=== PATIENT | female | born 1945 | race Caucasian/White ===

== ENCOUNTER → 2016-05-30 | Outpatient (CLI) | payer OTHER ==
[~2016-05-30] MED LIST: CELE100C PO; CHOL200010 PO; DOCU-94 PO; DULO60CA44 PO; FOLI1POW10 PO; HYDR0.5T PO; HYDR25TA4 PO; LEUC5TAB PO; LORA0.5T12 PO; METF-383 PO; METH2.5T PO; MONT1TAB3 PO; OMEG10007 PO; OMEP20TA14 PO; POLY1SOL6 OPB; PRED1SUS3 OPL; RXC5 PO; SODI5SOL4 OPB
--- NOTE | 2016-05-30 12:52 | MAMMOGRAPHY REPORT ---
BILATERAL DIGITAL DIAGNOSTIC MAMMOGRAM WITH CAD AND TARGETED RIGHT ULTRASOUND: 05/30/2016 CLINICAL HISTORY: 6 Month Follow-up. TECHNIQUE: Current study was also evaluated with a Computer Aided Detection (CAD) system. Bilatera l CC and MLO views and spot magnification left CC and ML views were obtained. COMPARISON: Comparison is made to exams dated: 11/27/2015 mammogram, 11/20/2015 mammogram, 11/04/2013 m ammogram, 11/15/2014 mammogram, 11/03/2012 mammogram, and 11/03/2011 mammogram - [facility] C enter. BREAST COMPOSITION: The tissue of both breasts is heterogeneously dense, which may obscure small ma sses. FINDINGS: Spot magnification views of the left breast again demonstrate a small cluster of punctate benign-candace earing calcifications in the left upper outer quadrant posteriorly. The calcifications are stable c ompared to spot magnification views dating back to April 2015, and are therefore probably benign g iven the morphology and stability. An oval circumscribed 13 mm mass seen within the right superior posterior breast on the MLO view onl y is stable compared to the October 2015 exam, and in retrospect may have been present on the 2011 exam although was somewhat obscured by overlying fibroglandular tissue which makes it difficult to confi rm stability. The remainder of both breasts are stable compared to prior exams, without suspicious masses, calcifications, or areas of architectural distortion noted. A biopsy marker clip is again n oted in the right lateral breast. Scattered bilateral benign appearing calcifications are not signi ficantly changed. Targeted ultrasound was performed of the right breast in the region of the stable mammographic mass. In the right breast at 8:30, 7 cm from the nipple, there is an oval hypoechoic circumscribed paral lel mass which measures 1.3 x 0.5 x 0.6 cm. This corresponds with the stable mammographic mass and is probably benign and likely represents a fibroadenoma. IMPRESSION: ACR-BI-RADS CATEGORY 3: PROBABLY BENIGN, TARGETED ULTRASOUND ACR-BI-RADS CATEGORY 3: VT OBABLY BENIGN 1. The circumscribed 13 mm mass in the right breast is stable mammographically compared to the October 2015 exam and likely was present on the 2011 exam. A corresponding hypoechoic benign-appearing taras id mass is seen in the right breast at 8:30 on ultrasound. The mass is probably benign and likely r epresents a fibroadenoma. Recommend follow-up diagnostic mammograms and possible ultrasound of the right breast in 6 months to confirm longer stability. 2. Small cluster of punctate calcifications in the left upper outer quadrant is stable dating back to the April 2015 exam, and is probably benign given the morphology and long-term stability. Jonn mmend follow-up diagnostic mammograms of the left breast in 6 months to confirm longer stability. The patient has been verbally notified of the results. Approximately 10% of breast cancers are not detected with mammography. A negative mammographic repor t should not delay biopsy if a clinically suggestive mass is present. Lolly Blake M.D. ah/:05/30/2016 12:16:17 Oim Architect: Lalito TSE(Marii)(Betsey), [facility] letter sent: Follow Up Recommended 3 BI-RADS Code: ACR-BI-RADS Category 3: Probably Benign Ultrasound BI-RADS: ACR-BI-RADS Category 3: P robably Benign
== END | disposition home or self-care (01) ==
LOC: C.MAMM 10:24
PROVIDERS: ATTEND Obstetrics & Gynecology
DX: N63 Unspecified lump in breast (principal); R92.1 Mammographic calcification found on diagnostic imaging of breast

== ENCOUNTER → 2016-08-08 | Outpatient (CLI) | payer OTHER ==
[2016-08-08 17:43] LABS: BASO % 0.6 %; BASO ABS # 0.05 K/uL (0-0.2); COMPLETE YES; EOS % 0.8 %; HEMATOCRIT 40.6 % (37-47); IG% 0.4 %; LYMPH % 27.8 %; LYMPH ABS # 2.31 K/uL (1.2-3.4); MEAN CELL VOLUME 91.9 fL (80-100); MEAN CORPUSCULAR HEMOGLOBIN 29.9 pg (25-34); MEAN CORPUSCULAR HGB CONC 32.5 g/dl (32-36); MEAN PLATELET VOLUME 10.3 fL (7.4-10.4); MONO % 11.1 %; NEUT % 59.3 %; PLATELET COUNT 297 K/uL (130-400); RED BLOOD COUNT 4.42 M/uL (4.2-5.4); WHITE BLOOD COUNT 8.31 K/uL (4.8-10.8)
[2016-08-08 17:56] LABS: FERRITIN 40.1 ng/ml (8.0-388.0)
== END | disposition home or self-care (01) ==
LOC: C.LABPVFM 12:08
PROVIDERS: ATTEND Nurse Practitioner
DX: D50.9 Iron deficiency anemia, unspecified (principal)

== ENCOUNTER → 2016-09-12 | Outpatient (CLI) | payer OTHER ==
[2016-09-12 12:51] LABS: BASO % 0.6 %; BASO ABS # 0.03 K/uL (0-0.2); COMPLETE YES; EOS % 1.7 %; HEMATOCRIT 38.9 % (37-47); IG% 0.2 %; LYMPH % 32.9 %; LYMPH ABS # 1.75 K/uL (1.2-3.4); MEAN CELL VOLUME 94.2 fL (80-100); MEAN CORPUSCULAR HEMOGLOBIN 29.5 pg (25-34); MEAN CORPUSCULAR HGB CONC 31.4 g/dl (32-36); MONO % 8.5 %; NEUT % 56.1 %; PLATELET COUNT 315 K/uL (130-400); RED BLOOD COUNT 4.13 M/uL (4.2-5.4); WHITE BLOOD COUNT 5.32 K/uL (4.8-10.8)
[2016-09-12 13:16] LABS: ALB/GLOB RATIO 1.2 (0.9-2); ALKALINE PHOSPHATASE 86 U/L (45-117); ALT/SGPT 41 U/L (12-78); AST/SGOT 29 U/L (15-37); BLOOD UREA NITROGEN 13 mg/dl (7-18); BUN/CREATININE RATIO 14.7 (10-20); CALCIUM 8.7 mg/dl (8.5-10.1); CARBON DIOXIDE 27 mmol/L (21-32); CHLORIDE 107 mmol/L (98-107); CREATININE 0.91 mg/dl (0.60-1.20); FERRITIN 27.7 ng/ml (8.0-388.0); GLUCOSE 133 mg/dl (70-99); POTASSIUM 4.1 mmol/L (3.5-5.1); SODIUM 143 mmol/L (136-145)
[2016-09-12 13:20] LABS: TOTAL IRON BINDING CAPACITY 407 mcg/dl (250-450)
[2016-09-12 13:42] LABS: ESTIMATED AVERAGE GLUCOSE 143 mg/dl; HA1C FLAG Normal (Normal)
[2016-09-12 13:43] LABS: CHOLESTEROL/HDL RATIO 4.2
== END | disposition home or self-care (01) ==
LOC: C.LABPVFM 09:37
PROVIDERS: ATTEND Family Medicine
DX: Z00.00 Encounter for general adult medical examination without abnormal findings (principal); D50.9 Iron deficiency anemia, unspecified; E11.9 Type 2 diabetes mellitus without complications; E78.5 Hyperlipidemia, unspecified; F41.9 Anxiety disorder, unspecified

== ENCOUNTER → 2016-09-16 | Outpatient (CLI) | payer OTHER ==
--- NOTE | 2016-09-16 15:39 | DIAGNOSTIC IMAGING REPORT ---
PELVIS/BILATERAL HIP 2 VIEWS CLINICAL HISTORY: Recent fall. Bilateral hip pain. COMPARISON STUDY: Pelvis radiograph May 27, 2011. FINDINGS: Lumbar spine fusion hardware is partially imaged. 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 There is no periprosthetic fracture. There is no acute fracture within the pelvis or the hips. The sacroiliac joints and symphysis pubis are intact. There are a few pelvic surgical clips. IMPRESSION: 1. No acute fracture within the pelvis or hips. 2. Anatomic alignment of total left hip arthroplasty with no periprosthetic fracture. Electronically signed by: Riley Chaparro M.D. 09/16/2016 3:38 PM Dictated Date/Time: 09/16/2016 3:36 PM
== END | disposition home or self-care (01) ==
LOC: C.RADPV 14:11
PROVIDERS: ATTEND Nurse Practitioner
DX: M25.552 Pain in left hip (principal); M25.551 Pain in right hip; R10.2 Pelvic and perineal pain

== ENCOUNTER → 2016-10-14 | Outpatient (CLI) | payer OTHER ==
[2016-10-14 17:38] LABS: BASO % 0.5 %; BASO ABS # 0.04 K/uL (0-0.2); COMPLETE YES; EOS % 2.4 %; HEMATOCRIT 38.1 % (37-47); IG% 0.4 %; LYMPH % 29.1 %; LYMPH ABS # 2.34 K/uL (1.2-3.4); MEAN CELL VOLUME 94.5 fL (80-100); MEAN CORPUSCULAR HEMOGLOBIN 30.3 pg (25-34); MEAN PLATELET VOLUME 9.9 fL (7.4-10.4); MONO % 11.2 %; NEUT % 56.4 %; PLATELET COUNT 315 K/uL (130-400); RED BLOOD COUNT 4.03 M/uL (4.2-5.4); WHITE BLOOD COUNT 8.03 K/uL (4.8-10.8)
[2016-10-14 18:27] LABS: ALB/GLOB RATIO 1.1 (0.9-2); ALKALINE PHOSPHATASE 89 U/L (45-117); ALT/SGPT 27 U/L (12-78); AST/SGOT 19 U/L (15-37); BLOOD UREA NITROGEN 12 mg/dl (7-18); BUN/CREATININE RATIO 13.1 (10-20); CALCIUM 9.4 mg/dl (8.5-10.1); CARBON DIOXIDE 26 mmol/L (21-32); CHLORIDE 105 mmol/L (98-107); CREATININE 0.93 mg/dl (0.60-1.20); FERRITIN 22.9 ng/ml (8.0-388.0); GLUCOSE 102 mg/dl (70-99); POTASSIUM 3.7 mmol/L (3.5-5.1); SODIUM 141 mmol/L (136-145)
[2016-10-14 18:31] LABS: TOTAL IRON BINDING CAPACITY 434 mcg/dl (250-450)
== END | disposition home or self-care (01) ==
LOC: C.LABPVFM 14:06
PROVIDERS: ATTEND Nurse Practitioner Family
DX: D50.9 Iron deficiency anemia, unspecified (principal)

== ENCOUNTER → 2016-11-04 | Outpatient (CLI) | payer OTHER ==
[2016-11-04 18:31] LABS: LYME DISEASE AB IGG NEG (NEG); LYME DISEASE AB IGM NEG (NEG)
== END | disposition home or self-care (01) ==
LOC: C.LABPVFM 11:31
PROVIDERS: ATTEND Nurse Practitioner
DX: R41.3 Other amnesia (principal)

== ENCOUNTER → 2016-11-21 | Outpatient (CLI) | payer OTHER ==
--- NOTE | 2016-11-26 09:03 | CODING QUERY MEDICAL NECESSITY ---
SUPPORTING DIAGNOSIS NEEDED Abel MCDONALD, A supporting diagnosis is required for the test/procedure performed on this patient in order for us to be reimbursed by the patient's insurance. Please provide a supporting diagnosis for the following test/procedure listed below next to the test name along with your signature. *If there is no additional diagnosis for this patient that would support the following test/procedure please document that below next to the test/procedure. Test(s)/Procedure(s) that require a supporting diagnosis: * ([id number]) VITAMIN D ASSAY DIAGNOSIS: DATE OF SERVICE: 11/21/16 Provider Signature: Date: Thank you [facility] Information Management Once completed, please kindly fax back to [phone] For questions please call [phone]
== END | disposition home or self-care (01) ==
LOC: C.LABPVFM 11:49
PROVIDERS: ATTEND Nurse Practitioner
DX: R41.0 Disorientation, unspecified (principal); R45.4 Irritability and anger; R41.3 Other amnesia; M79.1 Myalgia

== ENCOUNTER → 2016-11-28 | Outpatient (CLI) | payer OTHER ==
--- NOTE | 2016-11-28 13:22 | MAMMOGRAPHY REPORT ---
BILATERAL DIGITAL DIAGNOSTIC MAMMOGRAM TOMOSYNTHESIS WITH CAD AND TARGETED RIGHT ULTRASOUND: 11/28/2016 CLINICAL HISTORY: 6 Month Follow-up. TECHNIQUE: Breast tomosynthesis in addition to standard 2D mammography was performed. Current study was also evaluated with a Computer Aided Detection (CAD) system. Bilateral CC and MLO 2-D and tomosy nthesis images and spot magnification left CC and ML views were obtained. COMPARISON: Comparison is made to exams dated: 05/30/2016 ultrasound, 05/30/2016 mammogram, 11/20/2015 ma mmogram, 11/20/2015 ultrasound, 05/21/2015 mammogram, and 11/06/2014 mammogram - [facility] C enter. BREAST COMPOSITION: The tissue of both breasts is heterogeneously dense, which may obscure small mas ses. FINDINGS: Again noted is an oval circumscribed 15 mm mass within the right superior posterior breast on the MLO view. The mass is stable mammographically dating back to the 11/20/2015 exam, and may hav e been present on the 2011 exam. Spot magnification views of the left breast again demonstrate a sma ll cluster of very faint punctate calcifications in the left upper outer quadrant posteriorly. The c alcifications are stable dating back to at least the April 2015 exam, and are felt to be benign giv en the morphology and stability. The remainder of both breasts are stable compared to prior exams, without suspicious masses, calcific ations, or areas of architectural distortion noted. Other scattered bilateral benign-appearing calci fications are not significantly changed. A biopsy marker clip is again noted in the right lateral br east. Targeted ultrasound was performed of the area of the previously seen mass. In the right breast at 9: 00, 8 centimeters from the nipple, there is an oval circumscribed hypoechoic mass which measures 11 x 5 x 9 mm. This is stable in size and appearance compared to the 05/30/2016 exam when accounting for d ifferences in measurement technique. This likely corresponds with the stable mammographic mass and i s probably benign and likely represents a fibroadenoma. IMPRESSION: ACR-BI-RADS CATEGORY 3: PROBABLY BENIGN, TARGETED ULTRASOUND ACR-BI-RADS CATEGORY 3: PRO BABLY BENIGN 1. Circumscribed benign-appearing 15 mm mass in the right superior posterior breast is stable mammog raphically dating back to the October 2015 exam, with a corresponding hypoechoic mass seen in the right breast at 9:00 on ultrasound. The mass is probably benign given 1 year of stability and likely repre sents a fibroadenoma. Recommend follow-up diagnostic tomosynthesis mammograms and possible ultrasoun d of the right breast in one year to confirm 2 years of stability of the mass. Routine mammography o f the left breast will be due at that time. 2. Grouped benign-appearing punctate calcifications in the left upper outer quadrant are stable dati ng back to April 2015, and are considered benign given the morphology and long-term stability. The patient has been verbally notified of the results. Approximately 10% of breast cancers are not detected with mammography. A negative mammographic report should not delay biopsy if a clinically suggestive mass is present. Lolly Blake M.D. ah/:11/28/2016 11:54:54 Attending Technologist: Kimberly Martinez, [facility] Farm Equipment Mechanic: Nathalie Rocha RT(R)(M), [facility] letter sent: Follow Up Recommended 3 BI-RADS Code: ACR-BI-RADS Category 3: Probably Benign Ultrasound BI-RADS: ACR-BI-RADS Category 3: Pr obably Benign
== END | disposition home or self-care (01) ==
LOC: C.MAMM 10:29
PROVIDERS: ATTEND Obstetrics & Gynecology
DX: Z09 Encounter for follow-up examination after completed treatment for conditions other than malignant neoplasm (principal); N63 Unspecified lump in breast; R92.1 Mammographic calcification found on diagnostic imaging of breast

== ENCOUNTER → 2017-01-16 | Outpatient (CLI) | payer OTHER ==
[2017-01-16 17:55] LABS: ALT/SGPT 45 U/L (12-78); BLOOD UREA NITROGEN 18 mg/dl (7-18); BUN/CREATININE RATIO 17.8 (10-20); CARBON DIOXIDE 27 mmol/L (21-32); CHLORIDE 99 mmol/L (98-107); GLUCOSE 129 mg/dl (70-99); POTASSIUM 3.6 mmol/L (3.5-5.1); SODIUM 138 mmol/L (136-145)
[2017-01-16 17:58] LABS: ALB/GLOB RATIO 1.2 (0.9-2); ALKALINE PHOSPHATASE 82 U/L (45-117); AST/SGOT 34 U/L (15-37); BASO % 0.3 %; BASO ABS # 0.02 K/uL (0-0.2); COMPLETE YES; EOS % 2.2 %; FERRITIN 36.8 ng/ml (8.0-388.0); HEMATOCRIT 41.6 % (37-47); IG% 0.4 %; LYMPH % 36.8 %; MEAN CELL VOLUME 93.1 fL (80-100); MEAN CORPUSCULAR HGB CONC 32.2 g/dl (32-36); MONO % 7.5 %; NEUT % 52.8 %; PLATELET COUNT 299 K/uL (130-400); RED BLOOD COUNT 4.47 M/uL (4.2-5.4); TOTAL IRON BINDING CAPACITY 418 mcg/dl (250-450); WHITE BLOOD COUNT 7.34 K/uL (4.8-10.8)
== END | disposition home or self-care (01) ==
LOC: C.LABPVFM 13:43
PROVIDERS: ATTEND Nurse Practitioner Family
DX: D50.9 Iron deficiency anemia, unspecified (principal)

== ENCOUNTER → 2017-04-07 | Outpatient (CLI) | payer OTHER ==
[2017-04-07 12:58] LABS: ESTIMATED AVERAGE GLUCOSE 160 mg/dl; HA1C FLAG Normal (Normal)
== END | disposition home or self-care (01) ==
LOC: C.LABPVFM 09:32
PROVIDERS: ATTEND Nurse Practitioner
DX: E78.5 Hyperlipidemia, unspecified (principal); E11.9 Type 2 diabetes mellitus without complications

== ENCOUNTER → 2017-05-28 | Outpatient (CLI) | payer OTHER ==
[2017-05-28 17:41] LABS: BLOOD UREA NITROGEN 16 mg/dl (7-18); CREATININE 1.13 mg/dl (0.60-1.20)
== END | disposition home or self-care (01) ==
LOC: C.LABPVFM 14:20
PROVIDERS: ATTEND Physician Assistant Medical
DX: M54.5 Low back pain (principal)

== ENCOUNTER → 2017-07-21 | Outpatient (CLI) | payer OTHER ==
[2017-07-21 17:25] LABS: BASO % 0.7 %; BASO ABS # 0.05 K/uL (0-0.2); EOS % 3.5 %; EOS ABS # 0.26 K/uL (0-0.5); HEMATOCRIT 39.7 % (37-47); HEMOGLOBIN 13.4 g/dL (12.0-16.0); IG# 0.02 K/uL (0.00-0.02); LYMPH % 34.2 %; LYMPH ABS # 2.56 K/uL (1.2-3.4); MEAN CELL VOLUME 96.8 fL (80-100); MEAN CORPUSCULAR HEMOGLOBIN 32.7 pg (25-34); MEAN CORPUSCULAR HGB CONC 33.8 g/dl (32-36); MEAN PLATELET VOLUME 10.4 fL (7.4-10.4); MONO % 13.1 %; MONO ABS # 0.98 K/uL (0.11-0.59); NEUT % 48.2 %; NEUT ABS # 3.62 K/uL (1.4-6.5); PLATELET COUNT 303 K/uL (130-400); RED CELL DISTRIBUTION WIDTH SD 55.3 fL (36.4-46.3); WHITE BLOOD COUNT 7.49 K/uL (4.8-10.8)
[2017-07-21 17:45] LABS: ALBUMIN 3.7 gm/dl (3.4-5.0); ALT/SGPT 50 U/L (12-78); AST/SGOT 41 U/L (15-37); BLOOD UREA NITROGEN 17 mg/dl (7-18); CALCIUM 9.6 mg/dl (8.5-10.1); CARBON DIOXIDE 27 mmol/L (21-32); CREATININE 1.22 mg/dl (0.60-1.20); GLUCOSE 223 mg/dl (70-99); POTASSIUM 3.2 mmol/L (3.5-5.1); SODIUM 137 mmol/L (136-145)
[2017-07-21 17:49] LABS: ALKALINE PHOSPHATASE 83 U/L (45-117); TOTAL PROTEIN 7.2 gm/dl (6.4-8.2); TRANSFERRIN 323 mg/dl (200-360)
== END | disposition home or self-care (01) ==
LOC: C.LABPVFM 14:03
PROVIDERS: ATTEND Nurse Practitioner Family
DX: D50.9 Iron deficiency anemia, unspecified (principal)

== ENCOUNTER → 2017-07-24 | Outpatient (CLI) | payer OTHER ==
[2017-07-25 06:59] LABS: HEMOGLOBIN A1C 7.4 % (4.5-5.6)
== END | disposition home or self-care (01) ==
LOC: C.LABPVFM 13:25
PROVIDERS: ATTEND Family Medicine
DX: E11.9 Type 2 diabetes mellitus without complications (principal); R68.2 Dry mouth, unspecified

== ENCOUNTER → 2017-12-07 | Outpatient (CLI) | payer OTHER ==
--- NOTE | 2017-12-10 08:21 | MAMMOGRAPHY REPORT ---
BILATERAL DIGITAL DIAGNOSTIC MAMMOGRAM TOMOSYNTHESIS WITH CAD: 12/07/2017 CLINICAL HISTORY: 72-year-old woman presents at time of annual screening and also close follow-up george luation of a benign-appearing 18 x 8 mm mass in the far posterior right breast along the posterior ni pple line on the MLO view. Patient has a history of prior benign ultrasound-guided core biopsy in the right breast at 9:00 which yielded fibrocystic change. TECHNIQUE: Bilateral CC and MLO 2D and tomosynthesis images were obtained. Current study was also ev aluated with a Computer Aided Detection (CAD) system. COMPARISON: Comparison is made to exams dated: 11/28/2016 mammogram, 05/30/2016 mammogram, 11/27/2015 mamm ogram, 11/20/2015 mammogram, 05/21/2015 mammogram, and 11/15/2014 mammogram - [facility]. BREAST COMPOSITION: The tissue of both breasts is heterogeneously dense, which may obscure small mass es. FINDINGS: There is a stable ribbon-shaped biopsy marker clip in the 9:00 middle to anterior right otoniel ast. A stable circumscribed 8 mm mass in the upper outer right breast appears similar dating back to at least 2008, most likely an intramammary lymph node. The previously observed 18 x 8 mm oval mass in the far posterior right breast along the posterior nipple line on the MLO view is no longer seen, confirming benignity. There are scattered bilateral benign rim calcifications. A stable circumscrib ed subcentimeter mass in the lateral left breast is stable dating back to at least 2011, and stable s mall faint grouped punctate calcifications in the left upper outer posterior breast. No new suspiciou s mass, architectural distortion or cluster of microcalcifications is seen. IMPRESSION: ACR BI-RADS CATEGORY 2: BENIGN The benign-appearing oval circumscribed 18 mm mass in the posterior right breast is no longer seen, c onfirming benignity. There is no mammographic evidence of malignancy bilaterally. A 1 year screening mammogram is recommended.(12/08/2018) The patient has been verbally notified of the results. Some breast cancers are not detected with mammography. A negative mammographic report should not lizeth y biopsy if a clinically suggestive mass is present. Marya Baires M.D. ay/:12/07/2017 12:17:15 Professor Of Biochemistry: Kimberly Esteban RT(R)(M), [facility] letter sent: Normal 1/2 BI-RADS Code: ACR BI-RADS Category 2: Benign
== END | disposition home or self-care (01) ==
LOC: C.MAMM 11:27
PROVIDERS: ATTEND Family Medicine
DX: Z12.31 Encounter for screening mammogram for malignant neoplasm of breast (principal)

== ENCOUNTER 2023-03-23 12:12 | Inpatient (IN) ==
[2023-03-23] MEDS ORDERED: SODIUM CHLORIDE 0.9% 500 ML IV STA (12:26)
[2023-03-23 13:39] LABS: Albumin Globulin Ratio 1.4 (0.9-2); Albumin Level 3.8 gm/dl (3.4-5.0); BUN Creatinine Ratio 11.8 (10-20); Bilirubin,Total 0.3 mg/dl (0.2-1.0); Calcium 8.6 mg/dl (8.6-10.3); Creatinine Clr Calc Pharmacy 11.8 ml/min; Est GFR (Non-African American) 9.5 ml/min; Globulin 2.7 gm/dl (2.5-4.0); Potassium 4.8 mmol/L (3.5-5.1); Total Protein 6.5 gm/dl (6.0-8.3)
[2023-03-23 13:42] LABS: Basophils # (auto) 0.06 K/uL (0.00-0.20); Basophils % (auto) 0.9 %; Eosinophils # (auto) 0.21 K/uL (0.00-0.50); Eosinophils % (auto) 3.1 %; Hematocrit (blood only) 33.3 % (37.0-47.0); Hemoglobin 10.3 g/dl (12.0-16.0); Immature Granulocytes # (auto) 0.04 K/uL (0.01-0.20); Immature Granulocytes % (auto) 0.6 %; Lymphocytes # (auto) 1.35 K/uL (1.20-3.40); Lymphocytes % (auto) 19.7 %; Mean Corpuscular Hemoglobin 25.8 pg (25.0-34.0); Mean Corpuscular Hgb Conc 30.9 g/dL (32.0-36.0); Mean Corpuscular Volume 83.5 fL (80.0-100.0); Mean Platelet Volume 11.1 fL (9.4-12.4); Monocytes # (auto) 0.81 K/uL (0.11-0.59); Monocytes % (auto) 11.8 %; Neutrophils % (auto) 63.9 %; Platelet Count 233 K/uL (130-400); RDW Coefficient of Variation 21.6 % (11.5-14.5); RDW Standard Deviation 65.5 fL (36.4-46.3); Red Blood Count 3.99 M/uL (4.20-5.40); White Blood Count 6.87 K/ul (4.8-10.8)
[2023-03-23 14:10] LABS: Anisocytosis Present; Polychromasia 1+
--- NOTE | 2023-03-23 14:40 | CT Scan Report ---
CT OF THE ABDOMEN AND PELVIS WITHOUT CONTRAST CLINICAL HISTORY: Left flank pain. COMPARISON STUDY: CT of the abdomen and pelvis December 17, 2022. TECHNIQUE: Axial images of the abdomen and pelvis were obtained without IV contrast. Images were revi ewed in the axial, sagittal, and coronal planes. Automated exposure control was utilized for the jalil dy. A dose lowering technique was utilized adhering to the principles of ALARA. FINDINGS: There is a trace right pleural effusion. A 5 mm mid left ureteral calculus at the L5-S1 lev el results in moderate left hydronephrosis. Multiple left renal calculi measure up to 6 mm. There are no right ureteral calculi. There is no right hydronephrosis. A punctate right renal calculus is pres ent a 1.1 cm left renal lesion on image 147 of 393 measures above water attenuation. This is similar to CT of December 17, 2022. This remains indeterminate. Spleen, adrenal glands and pancreas are unremar kable on unenhanced exam. No abdominal or pelvic lymphadenopathy is present. Left hip are opacities i ncidentally noted. DEPARTMENT MGR shunt is partially imaged. Visualized portions are intact. IMPRESSION: 1. 5 mm mid left ureteral calculus results in moderate left hydronephrosis. 2. Multiple left renal calculi. Punctate right renal calculus. No right hydronephrosis. No right uret eral calculi. 3. Trace right pleural effusion. ACT 112: Negative or not required by law. Electronically signed by: Riley Chaparro M.D. 03/23/2023 2:39 PM
--- NOTE | 2023-03-23 14:44 | Emergency Department Note ---
History of Present Illness General Chief Complaint: Flank Pain Stated Complaint: FLANK PAIN Time Seen by Provider: 03/23/23 13:00 History of Present Illness Provider Complaint: flank pain Onset (ago): 6 day(s) Pain Consistency: intermittent Location: L flank Radiation: LLQ Severity: mild Maximum Pain Intensity: 3 Current Pain Intensity: 3 Quality: + stabbing and + sharp Relieved By: + nothing Exacerbated By: + nothing Context: no foreign travel, no possible food poisoning, no sick contacts, no recent antibiotic use, no recent surgery/procedure or no recent injury Associated Symptoms: + nausea and + dysuria; no vomiting, no diarrhea, no fever, no chills, no constipation, no hematemesis, no hematochezia, no melena, no hematuria, no headache, no chest pain and no breathing difficulty Home Medications Medication Instructions Recorded Confirmed Type aspirin 81 mg tablet,delayed 81 mg PO QAM 07/22/18 03/23/23 History release cyanocobalamin (vitamin B-12) 1,000 mcg PO QAM 07/22/18 03/23/23 History 1,000 mcg tablet (Vitamin B-12) blood sugar diagnostic (OneTouch #10 ea 09/29/18 02/05/23 Rx Ultra Blue Test Strip) lancets 33 gauge (OneTouch Delica #100 ea 09/29/18 02/05/23 Rx Lancets) simethicone 180 mg capsule (Gas-X 180 mg PO DAILY PRN abdominal 09/29/18 03/23/23 Rx Ultra-Strength) distention #30 caps cholecalciferol (vitamin D3) 50 4,000 units PO DAILY #30 caps 02/17/19 03/23/23 Rx mcg (2,000 unit) capsule (Vitamin D3) sodium chloride 2 % eye drops 1 drp OPL HS 08/24/20 03/23/23 History (Reji 128) acetaminophen 325 mg capsule 325 mg PO QID PRN Pain 11/20/20 03/23/23 History ascorbic acid (vitamin C) 100 mg 100 mg PO DAILY 11/20/20 03/23/23 History tablet docusate sodium 100 mg capsule 100 mg PO DAILY PRN Constipation 11/20/20 03/23/23 History (Colace) lidocaine 4 % topical patch 1 patch topical DAILY PRN Pain 11/20/20 03/23/23 History (Aspercreme (lidocaine)) blood-glucose meter (OneTouch #1 ea 04/12/21 02/05/23 Rx Ultra2 Meter) Saccharomyces boulardii 250 mg 10,000 mmu cells PO DAILY 12/11/21 03/23/23 History capsule (Daily Probiotic (S. boulardii)) fish,bora,flax oils-om3,6,9no1 2 gummy PO DAILY 01/08/22 03/23/23 History [Perham 3-6-9 Complex] prednisolone acetate 1 % eye 1 drp ophthalmic (eye) BID 01/08/22 03/23/23 History drops,suspension ipratropium bromide 21 mcg (0.03 2 spray intranasal BID #90 mL 04/01/22 03/23/23 Rx %) nasal spray thiamine HCl (vitamin B1) 50 mg 25 mg PO DAILY 09/19/22 03/23/23 History tablet donepezil 5 mg tablet 5 mg PO DAILY #90 tabs 10/13/22 03/23/23 Rx lorazepam 1 mg tablet 1 mg PO BID PRN anxiety #60 tabs 10/16/22 03/23/23 Rx spironolactone 25 mg tablet See Rx Instructions .Route 11/13/22 03/23/23 Rx .COMPLEX #90 tabs sertraline 50 mg tablet 25 mg PO BID 12/05/22 03/23/23 History losartan 100 mg tablet 100 mg PO DAILY #90 tabs 12/31/22 03/23/23 Rx insulin glargine 100 unit/mL (3 55 unit (0.55 mL) subcut PM #55 mL 01/12/23 03/23/23 Rx mL) subcutaneous pen (Basaglar AnaikPen U-100 Insulin) levothyroxine 50 mcg tablet See Rx Instructions .Route 01/12/23 03/23/23 Rx .COMPLEX #90 tabs metformin 500 mg tablet,extended 750 mg PO BID 01/12/23 03/23/23 History release 24hr pantoprazole 40 mg tablet,delayed See Rx Instructions .Route 01/26/23 03/23/23 Rx release .COMPLEX #90 tabs ferrous sulfate 325 mg (65 mg 325 mg PO DAILY #90 tabs 01/28/23 03/23/23 Rx iron) tablet pregabalin 100 mg capsule 100 mg PO BID 90 days #180 caps 03/02/23 03/23/23 Rx duloxetine 60 mg capsule,delayed 60 mg PO DAILY #90 caps 03/11/23 03/23/23 Rx release sprinkle Allergies Allergy/AdvReac Type Severity Reaction Status Date / Time cetirizine Allergy Intermediate RASH AND Verified 02/05/23 16:18 ITCH fexofenadine Allergy Intermediate ALLLEGRA Verified 02/05/23 16:18 AND ZYRTEC RASH AND ITCH loratadine Allergy Intermediate RASH Verified 02/05/23 16:18 Penicillins Allergy Intermediate RASH Verified 02/05/23 16:18 glimepiride AdvReac Intermediate high blood Verified 02/05/23 16:18 sugars pioglitazone AdvReac Intermediate Palpitation Verified 02/05/23 16:18 s simvastatin AdvReac Intermediate MYALGIA Verified 02/05/23 16:18 doxycycline AdvReac Mild Gastrointestinal Verified 02/05/23 16:18 Upset gabapentin AdvReac Mild Anxiety Verified 02/05/23 16:18 lisinopril AdvReac Mild dehydration Verified 02/05/23 16:18 Past Med/Surg History Medical History Sensorineural hearing loss (SNHL) of both ears COVID-19 vaccine series completed Lacunar infarction years ago- follows with Dr. Dover Hyperparathyroidism Essential hypertension Esophageal dysmotility Diabetic peripheral neuropathy CKD (chronic kidney disease) Polymyalgia rheumatica Fibromyalgia Diabetes mellitus, type 2 Temporomandibular joint disorder Depression Peripheral neuropathy Fluid retention hands- on HCTZ Sleep apnea 1L O2 HS Iron deficiency anemia Surgical History History of esophagogastroduodenoscopy (EGD) H/O oophorectomy H/O: hysterectomy History of arthroscopy RT/LEFT KNEE History of repair of rotator cuff RT History of total hip arthroplasty LEFT History of total knee replacement RT/LEFT Fusion of spine LUMBAR (X 2 SURGERIES) History of colonoscopy History of tooth extraction History of endoscopic sinus surgery History of nasal septoplasty History of cataract surgery RT/LEFT History of tonsillectomy H/O eye surgery PARTIAL LEFT RETINA REPLACEMENT Family History Sister Breast cancer Family hx colonic polyps Hypertension Skin cancer Metastatic malignant neoplasm to breast Father Myocardial infarction Heart disease Sister Family hx colonic polyps Mother Skin cancer Lung cancer smoker Brother Lung cancer smoker Bladder cancer Heart disease Family/Other Adverse effect of anesthesia Other No family history of adverse response to anesthesia No family history of bleeding disorder Denies family history of Ovarian cancer Prostate cancer Colorectal cancer Social History Smoking Status: Never smoker Tobacco Type: Cigarettes Age Started Using Tobacco: 23; Age Quit Using Tobacco: 31; packs per day: 1; Second Hand Exposure: Yes (parents smoked/ smoked); Do You Dip or Chew Tobacco: No; Hx Alcohol Use: Yes Alcohol type: beer and wine Alcohol Intake Frequency: 2-4 x/Month Hx Substance Use: No Preferred Language: [place] Communication Ability: Effective Visual Impairment: Limited Hearing Ability: Normal Healthcare Interpreter Required: No Beliefs That Will Affect Care: None marital status: Current Living Situation: Spouse current occupational status: retired current occupation: used to work running [employer] How many Children do You have: 1 Feels Safe at Home: Yes Childhood Exposure to Second-Hand Smoke: Yes Diet: regular caffeine: Yes during the past year weight has: remained stable Dental Care, Regularly: Yes Physical Activity Frequency: Does not Exercise Seatbelt Use: always Sunscreen Use: Yes (sometimes ) Do you think of yourself as: straight/heterosexual Gender Identity: Female Assistive Devices: Glasses and Oxygen - at Night Physical Exam 2 Vital Signs: Vital Signs - 24 hr 03/23/23 12:22 03/23/23 14:54 03/23/23 16:59 Temperature 36.7 C Temperature Source Temporal Artery Sc an Pulse Rate 75 74 Pulse Rate [Apical ] 76 Pulse Rhythm [Apic al] Pulse Strength [Ap ical] Respiratory Rate 18 16 16 Respiratory Effort / Characteristics Non-Labored Sponta neous Respiratory Depth Normal Respiratory Patter n Regular Blood Pressure 147/67 H 149/80 H Blood Pressure [Le ft Arm] 191/89 H Blood Pressure [Ri ght Arm] Blood Pressure Roseanne n 93 Blood Pressure Roseanne n [Left Arm] 123 Blood Pressure Roseanne n [Right Arm] Blood Pressure Pos ition Sitting Blood Pressure Pos ition [Left Arm] Pulse Oximetry 100 94 95 Oxygen Delivery Me thod Room Air Room Air Room Air Oxygen Flow Rate Sepsis Recent Feve r Within 48 Hours No Sepsis New/Unexpla ined Change in Men mark anthony Status N/A Sepsis Action Take n by Nursing No Action Required 03/23/23 17:22 03/23/23 18:11 03/23/23 18:21 Temperature 36.9 C 36.3 C L Temperature Source Oral Temporal Artery Sc an Temporal Artery Sc an Pulse Rate Pulse Rate [Apical ] 70 72 70 Pulse Rhythm [Apic al] Regular Regular Pulse Strength [Ap ical] Normal Normal Respiratory Rate 19 14 20 Respiratory Effort / Characteristics Non-Labored Sponta neous Non-Labored Sponta neous Non-Labored Sponta neous Respiratory Depth Normal Normal Normal Respiratory Patter n Regular Regular Regular Blood Pressure Blood Pressure [Le ft Arm] 139/65 Blood Pressure [Ri ght Arm] 129/56 L 114/92 Blood Pressure Roseanne n Blood Pressure Roseanne n [Left Arm] 89 Blood Pressure Roseanne n [Right Arm] 80 99 Blood Pressure Pos ition Blood Pressure Pos ition [Left Arm] Sitting Pulse Oximetry 93 94 97 Oxygen Delivery Me thod Room Air Oxymask Oxymask Oxygen Flow Rate 6 6 Sepsis Recent Feve r Within 48 Hours Sepsis New/Unexpla ined Change in Men mark anthony Status Sepsis Action Take n by Nursing 03/23/23 18:31 03/23/23 18:41 Temperature Temperature Source Temporal Artery Sc an Temporal Artery Sc an Pulse Rate Pulse Rate [Apical ] 68 74 Pulse Rhythm [Apic al] Regular Regular Pulse Strength [Ap ical] Normal Normal Respiratory Rate 15 18 Respiratory Effort / Characteristics Non-Labored Sponta neous Non-Labored Sponta neous Respiratory Depth Normal Normal Respiratory Patter n Regular Regular Blood Pressure Blood Pressure [Le ft Arm] Blood Pressure [Ri ght Arm] 163/69 H 168/76 H Blood Pressure Roseanne n Blood Pressure Roseanne n [Left Arm] Blood Pressure Roseanne n [Right Arm] 100 106 Blood Pressure Pos ition Blood Pressure Pos ition [Left Arm] Pulse Oximetry 99 97 Oxygen Delivery Me thod Oxymask Room Air Oxygen Flow Rate 4 Sepsis Recent Feve r Within 48 Hours Sepsis New/Unexpla ined Change in Men mark anthony Status Sepsis Action Take n by Nursing Physical Exam: Physical Exam GENERAL: She is oriented to person, place, and time. She appears well-developed and well-nourished. She does not appear distressed. HENT: Exam performed. -Head: Normocephalic and atraumatic. -Right Ear: External ear normal. No mastoid erythema -Left Ear: External ear normal. No mastoid erythema -Mouth/Throat: The oropharynx is clear and moist. No trismus in the jaw. No dental abscesses or uvula swelling. No oropharyngeal exudate or tonsillar abscesses. EYES: Conjunctivae and EOM are normal.Right eye exhibits no discharge. Left eye exhibits no discharge. No scleral icterus. NECK: Normal range of motion. Neck supple. No JVD present. No tracheal deviation and normal range of motion present. CV: Normal rate, regular rhythm, normal heart sounds and intact distal pulses. There is no peripheral edema. Palpable radial pulses bue. PULM/CHEST: Effort normal and breath sounds normal. No respiratory distress. No stridor. She has no wheezes. She has no rales. -Chest Wall: She exhibits no tenderness. ABD: The abdomen is soft. There is tenderness to palpation of the left lower quadrant. There is no rebound, no guarding, no Judge's sign and no tenderness at McBurney's point. Rovsig negative. No CVA tenderness bilaterally. MUSC/SKEL: Normal range of motion. There is no peripheral edema, tenderness or deformity. NEURO: Motor and sensation grossly intact. SKIN: Skin is warm and dry. She is not diaphoretic. PSYCH: She has a normal mood and affect. Behavior is normal. Judgment and thought content normal. Course Course 1300: The patient was evaluated in room D6. A complete history and physical exam was performed 1500: Vital signs stable. Labs show a creatinine of 4.25 which is up from patient's baseline of about 1.3. Last creatinine in our EMR on February 19, 2023 was 1.39. Imaging shows a 5 mm left ureteral calculus with moderate left-sided hydronephrosis. Discussed the case with urology on-call Angelica CONLEY for Dr. Son. She states make sure that the patient is n.p.o. and urology will evaluate the patient. Patient will be admitted to the [facility] Hospitalist team Dr. Alvarez team will be notified. Administered Medications Lactated Ringer's (Lr) 1,000 mls @ 15 mls/hr IV .Q24H LANE Stop: 04/22/23 17:14 Last Admin: 03/23/23 17:15 Dose: 15 mls/hr Documented By: JK Discontinued Medications Diatrizoate Meglumine (Diatrizoate Meglumine 30% 100ml Vial) 5 ml INSTIL ONCE ONE Stop: 03/23/23 18:03 Last Admin: 03/23/23 18:02 Dose: 5 ml Documented By: [id number] Sodium Chloride (Nss) 500 mls @ 999 mls/hr IV .Q31M STA Stop: 03/23/23 12:56 Last Infusion: 03/23/23 14:08 Dose: Infused Documented By: Admin: 03/23/23 13:23 Dose: 999 mls/hr Documented By: ACC Cefazolin Sodium (Ancef 2000mg) 2,000 mg in 15 mls @ 3.75 mls/min IV PREOP ONE; Protocol Stop: 03/23/23 16:53 Last Admin: 03/23/23 17:34 Dose: 3.75 mls/min Documented By: MARY ELLEN Medical Decision Making Medical Records Attestation: I reviewed the patient's medical records. Last creatinine in our EMR on February 19, 2023 was 1.39. Laboratory Data 03/23/23 12:47 03/23/23 12:47 Lab Results 03/23/23 03/23/23 03/23/23 Range/Units 12:47 18:12 Unknown WBC 6.87 (4.8-10.8) K/ul RBC 3.99 L (4.20-5.40) M/uL Hgb 10.3 L (12.0-16.0) g/dl Hct 33.3 L (37.0-47.0) % MCV 83.5 (80.0-100.0) fL MCH 25.8 (25.0-34.0) pg MCHC 30.9 L (32.0-36.0) g/dL RDW Std Deviation 65.5 H (36.4-46.3) fL RDW Coeff of Javier 21.6 H (11.5-14.5) % Plt Count 233 (130-400) K/uL MPV 11.1 (9.4-12.4) fL Immature Gran % (Auto) 0.6 % Neut % (Auto) 63.9 % Lymph % (Auto) 19.7 % Barren % (Auto) 11.8 % Eos % (Auto) 3.1 % Baso % (Auto) 0.9 % Neut # (Auto) 4.40 (1.40-6.50) K/uL Lymph # (Auto) 1.35 (1.20-3.40) K/uL Barren # (Auto) 0.81 H (0.11-0.59) K/uL Eos # (Auto) 0.21 (0.00-0.50) K/uL Baso # (Auto) 0.06 (0.00-0.20) K/uL Immature Gran # (Auto) 0.04 (0.01-0.20) K/uL Polychromasia 1+ Anisocytosis Present Sodium 143 (136-145) mmol/L Potassium 4.8 (3.5-5.1) mmol/L Chloride 113 H (98-107) mmol/L Carbon Dioxide 20 L (21-32) mmol/L Anion Gap 10 (3-11) BUN 50 H (6-23) mg/dl Creatinine 4.25 H (0.6-1.2) mg/dl Est Cr Clr Drug Dosing 11.8 ml/min Est GFR ( Amer) 11.0 ml/min Est GFR (Non-Af Amer) 9.5 ml/min BUN/Creatinine Ratio 11.8 (10-20) Glucose 143 H (70-99(Fasting)) mg/dl POC Glucose 81 (70-99) mg/dl Calcium 8.6 (8.6-10.3) mg/dl Total Bilirubin 0.3 (0.2-1.0) mg/dl AST 11 L (13-39) U/L ALT 10 (7-52) U/L Alkaline Phosphatase 74 (34-104) U/L Total Protein 6.5 (6.0-8.3) gm/dl Albumin 3.8 (3.4-5.0) gm/dl Globulin 2.7 (2.5-4.0) gm/dl Albumin/Globulin Ratio 1.4 (0.9-2) Urine Color Yellow Urine Appearance Clear (Clear) Urine pH 5.0 (4.5-7.5) Ur Specific Shelby 1.019 (1.000-1.030) Urine Protein Negative (Negative) Urine Glucose (UA) Negative (Negative) Urine Ketones Negative (Negative) Urine Blood 3+ H (Negative) Urine Nitrite Negative (Negative) Urine Bilirubin Negative (Negative) Urine Urobilinogen Negative (Negative) Ur Leukocyte Esterase Trace H (Negative) Urine WBC (Auto) 5-10 H (0-5) /hpf Urine RBC (Auto) 10-30 H (0-4) /hpf U Hyaline Cast (Auto) 1-5 (0-5) /lpf U Epithel Cells (Auto) 5-10 H (0-5) /lpf Urine Bacteria (Auto) Negative (Negative) Urine Yeast Not Reportable Imaging Data Radiologist's Impression: Abdomen/Pelvis CT 03/23/23 13:29 CT OF THE ABDOMEN AND PELVIS WITHOUT CONTRAST CLINICAL HISTORY: Left flank pain. COMPARISON STUDY: CT of the abdomen and pelvis December 17, 2022. TECHNIQUE: Axial images of the abdomen and pelvis were obtained without IV contrast. Images were reviewed in the axial, sagittal, and coronal planes. Automated exposure control was utilized for the study. A dose lowering technique was utilized adhering to the principles of ALARA. FINDINGS: There is a trace right pleural effusion. A 5 mm mid left ureteral calculus at the L5-S1 level results in moderate left hydronephrosis. Multiple left renal calculi measure up to 6 mm. There are no right ureteral calculi. There is no right hydronephrosis. A punctate right renal calculus is present a 1.1 cm left renal lesion on image 147 of 393 measures above water attenuation. This is similar to CT of December 17, 2022. This remains indeterminate. Spleen, adrenal glands and pancreas are unremarkable on unenhanced exam. No abdominal or pelvic lymphadenopathy is present. Left hip are opacities incidentally noted. ORTHO TECH shunt is partially imaged. Visualized portions are intact. IMPRESSION: 1. 5 mm mid left ureteral calculus results in moderate left hydronephrosis. 2. Multiple left renal calculi. Punctate right renal calculus. No right hydronephrosis. No right ureteral calculi. 3. Trace right pleural effusion. ACT 112: Negative or not required by law. Electronically signed by: Riley Chaparro M.D. 03/23/2023 2:39 PM MDM Narrative Vital signs stable. Labs show a creatinine of 4.25 which is up from patient's baseline of about 1.3. Last creatinine in our EMR on February 19, 2023 was 1.39. Imaging shows a 5 mm left ureteral calculus with moderate left-sided hydronephrosis. Discussed the case with urology on-call Angelica CONLEY for Dr. Son. She states make sure that the patient is n.p.o. and urology will evaluate the patient. Patient will be admitted to the [facility] hospitalist team Dr. Alvarez team will be notified. Impression & Plan Hydronephrosis concurrent with and due to calculi of kidney and ureter, TEODORA (acute kidney injury) Discharge Plan Visit Data Chief Complaint: Flank Pain Stated Complaint: FLANK PAIN ED Provider: Miguel Kay Discharge Problem: Hydronephrosis concurrent with and due to calculi of kidney and ureter, TEODORA (acute kidney injury) Patient Disposition: Admitted As Inpatient Discharge Instructions Interventions: ED Discharge Assessment Last Done: 03/23/23 16:59 Forms Stand Alone Forms: My [facility] Prescriptions Prescriptions: No Action cholecalciferol (vitamin D3) [Vitamin D3] 2,000 unit capsule 4,000 units PO DAILY Qty: 30 0RF Patient Comments: pt takes in the am (DME) blood-glucose meter [OneTouch Ultra2 Meter] Mis See Rx Instructions .Route Qty: 1 0RF Rx Instructions: TEST BID; DX CODE- E11.9 ipratropium bromide 21 mcg (0.03 %) spray,non-aerosol 2 spray intranasal BID Qty: 90 2RF Rx Instructions: administer into each nostril donepezil 5 mg tablet 5 mg PO DAILY Qty: 90 1RF lorazepam 1 mg tablet 1 mg PO BID PRN (Reason: anxiety) Qty: 60 1RF spironolactone 25 mg tablet See Rx Instructions .ROUTE .COMPLEX Qty: 90 1RF Dose Instruction: TAKE 1 TABLET BY MOUTH DAILY Rx Instructions: TAKE 1 TABLET BY MOUTH DAILY losartan 100 mg tablet 100 mg PO DAILY Qty: 90 0RF levothyroxine 50 mcg tablet See Rx Instructions .ROUTE .COMPLEX Qty: 90 1RF Dose Instruction: TAKE 1 TABLET BY MOUTH EVERY DAY Rx Instructions: TAKE 1 TABLET BY MOUTH EVERY DAY insulin glargine [Basaglar KwikPen U-100 Insulin] 100 unit/mL (3 mL) insulin pen 55 unit SQ PM Qty: 55 1RF pantoprazole 40 mg tablet,delayed release (DR/EC) See Rx Instructions .ROUTE .COMPLEX Qty: 90 1RF Dose Instruction: TAKE 1 TABLET BY MOUTH EVERY DAY Rx Instructions: TAKE 1 TABLET BY MOUTH EVERY DAY ferrous sulfate 325 mg (65 mg iron) tablet 325 mg PO DAILY Qty: 90 3RF pregabalin 100 mg capsule 100 mg PO BID 90 Days Qty: 180 1RF duloxetine 60 mg capsule, delayed rel sprinkle 60 mg PO DAILY Qty: 90 3RF simethicone [Gas-X Ultra-Strength] 180 mg capsule 180 mg PO DAILY PRN (Reason: abdominal distention) Qty: 30 0RF (DME) lancets [OneTouch Delica Lancets] 33 gauge misc See Dose Instructions .ROUTE .MEDSUPPLY Qty: 100 0RF Dose Instruction: As directed Rx Instructions: TEST ONCE A DAY (DME) OneTouch Ultra Blue Test Strip strip See Dose Instructions .ROUTE .MEDSUPPLY Qty: 10 0RF Dose Instruction: As directed Rx Instructions: MONITOR GLUCOSE ONCE DAILY Saccharomyces boulardii [Daily Probiotic (S. boulardii)] 250 mg capsule 10,000 mmu cells PO DAILY sertraline 50 mg tablet 25 mg PO BID prednisolone acetate 1 % drops,suspension 1 drp ophthalmic (eye) BID fish,bora,flax oils-om3,6,9no1 [Perham 3-6-9 Complex] 2 gummy PO DAILY thiamine HCl (vitamin B1) 50 mg tablet 25 mg PO DAILY metformin 500 mg tablet extended release 24hr 750 mg PO BID docusate sodium [Colace] 100 mg capsule 100 mg PO DAILY PRN (Reason: Constipation) acetaminophen 325 mg capsule 325 mg PO QID PRN (Reason: Pain) lidocaine [Aspercreme (lidocaine)] 4 % adhesive patch,medicated 1 patch topical DAILY PRN (Reason: Pain) ascorbic acid (vitamin C) 100 mg tablet 100 mg PO DAILY cyanocobalamin (vitamin B-12) [Vitamin B-12] 1,000 mcg Tablet 1,000 mcg PO QAM aspirin 81 mg tablet,delayed release (DR/EC) 81 mg PO QAM Reji 128 2 % drops 1 drp OPL HS Rx Instructions: 1 DROP IN LEFT EYE AT HS ophthalmic (eye) DAILY; Referrals Referrals: Benita Bergeron CRNP [Primary Care Provider] -
[2023-03-23 15:12] LABS: Appearance Urine Clear (Clear); Bacteria Urine Automated Negative (Negative); Bilirubin Urine Negative (Negative); Blood Urine 3+ (Negative); Color Urine Yellow; Glucose Urine UA Negative (Negative); Ketones Urine Negative (Negative); Leukocyte Esterase Urine Trace (Negative); Nitrite Urine Negative (Negative); Protein Urine Negative (Negative); Specific Gravity Urine 1.019 (1.000-1.030); Urobilinogen Urine Negative (Negative)
--- NOTE | 2023-03-23 15:29 | History & Physical Report ---
"Date of Service March 23, 2023 Assessment & Plan (1) Left renal mass: (2) Hyperlipidemia: (3) Diabetes mellitus, type 2: (4) Osteoarthritis: (5) NPH (normal pressure hydrocephalus): (6) Hypothyroid: Plan Oliva Chowdary is a 77 year-old female with a past medical history of lacunar CVA, DM 2, hypertension, hypothyroidism, normal pressure hydrocephalus (s/p shunt placement) who presented to the ED due to ongoing left sided pain. Left Ureteral Calculus | Obstructive Renal Failure -CT abdomen/pelvis: 5mm mid left ureteral calculus results in moderate left hydronephrosis, multiple left calculi -Cr of 4.25 on admission, baseline of Cr at approximately 1.2. Potassium of 4.8 today. -Monitor with q4h BMP for electrolyte monitoring -Has a known indeterminate 1.1 cm left interpolar lesion that radiology recommended f/u CT scan in 6 months -Urology consulted, appreciate recommendations -NPO, urology planning for stent procedure this evening -NSS @ 80ml/h -Monitor I's and O's, bennett catheter in place -UA with +leukocyte esterase, negative nitrites. No leukocytosis or fever. -Culture pending -Repeat CBC in a.m. -Tylenol PRN for pain control Type 2 Diabetes Mellitus -Home metformin ER 1,000mg BID, Basaglar 55 units PM -Holding home metformin, will order lantus 38u PM while NPO -Most recent A1C 7.8%, new A1C ordered for a.m. HTN -Hold home Losartan and spironolactone considering current renal failure and elevated potassium -BP likely elevated secondary to pain/anxiety with current condition -Will monitor BP, patient on telemetry Hypothyroidism -Continue levothyroxine 50mcg daily GERD -Continue pantoprazole 40mg daily Normal Pressure Hydrocephalus, s/p shunt -Follows with neurosurgery in [place] PRN Depression, Anxiety -Continue duloxetine 60mg daily, sertraline 25mg BID -Continue Lorazepam 1mg BID PRN Nocturnal Hypoxia -On oxygen QHS at home Admit to: Med/Tele Diet: NPO VTE Prophylaxis: early ambulation Code Status: Full Code History of Present Illness Primary Care Provider: TAMARA Aaron Oliva Chowdary is a 77 year-old female with a past medical history of lacunar CVA, DM 2, hypertension, hypothyroidism, rheumatoid arthritis, normal pressure hydrocephalus (s/p shunt placement) who presented to the ED for worsening left sided flank pain. She notes that discomfort started last Thursday, and has been intermittent. On she went 24 hours without passing any urine, she states she would sit on the toilet and strain but was unable to pass any urine. She has been able to urinate since then but has had some dysuria, denies any change in color of her urine. Patient notes that she recently saw urology over the summer for microscopic hematuria and urinary hesitancy, had a cystoscopy and CT A/P in the same time frame which identified some smaller renal stones. However she has never had known stones prior to that imaging. Allergies Allergy/AdvReac Type Severity Reaction Status Date / Time cetirizine Allergy Intermediate RASH AND Verified 02/05/23 16:18 ITCH fexofenadine Allergy Intermediate ALLLEGRA Verified 02/05/23 16:18 AND ZYRTEC RASH AND ITCH loratadine Allergy Intermediate RASH Verified 02/05/23 16:18 Penicillins Allergy Intermediate RASH Verified 02/05/23 16:18 glimepiride AdvReac Intermediate high blood Verified 02/05/23 16:18 sugars pioglitazone AdvReac Intermediate Palpitation Verified 02/05/23 16:18 s simvastatin AdvReac Intermediate MYALGIA Verified 02/05/23 16:18 doxycycline AdvReac Mild Gastrointestinal Verified 02/05/23 16:18 Upset gabapentin AdvReac Mild Anxiety Verified 02/05/23 16:18 lisinopril AdvReac Mild dehydration Verified 02/05/23 16:18 Home Medications Medication Instructions Recorded Confirmed Type aspirin 81 mg tablet,delayed 81 mg PO QAM 07/22/18 03/23/23 History release cyanocobalamin (vitamin B-12) 1,000 mcg PO QAM 07/22/18 03/23/23 History 1,000 mcg tablet (Vitamin B-12) blood sugar diagnostic (OneTouch #10 ea 09/29/18 02/05/23 Rx Ultra Blue Test Strip) lancets 33 gauge (OneTouch Delica #100 ea 09/29/18 02/05/23 Rx Lancets) simethicone 180 mg capsule (Gas-X 180 mg PO DAILY PRN abdominal 06/05/19 11/27/23 Rx Ultra-Strength) distention #30 caps cholecalciferol (vitamin D3) 50 4,000 units PO DAILY #30 caps 02/17/19 03/23/23 Rx mcg (2,000 unit) capsule (Vitamin D3) sodium chloride 2 % eye drops 1 drp OPL HS 08/24/20 03/23/23 History (Reji 128) acetaminophen 325 mg capsule 325 mg PO QID PRN Pain 11/20/20 03/23/23 History ascorbic acid (vitamin C) 100 mg 100 mg PO DAILY 11/20/20 03/23/23 History tablet docusate sodium 100 mg capsule 100 mg PO DAILY PRN Constipation 11/20/20 03/23/23 History (Colace) lidocaine 4 % topical patch 1 patch topical DAILY PRN Pain 11/20/20 03/23/23 History (Aspercreme (lidocaine)) blood-glucose meter (OneTouch #1 ea 04/12/21 02/05/23 Rx Ultra2 Meter) Saccharomyces boulardii 250 mg 10,000 mmu cells PO DAILY 12/11/21 03/23/23 History capsule (Daily Probiotic (S. boulardii)) fish,bora,flax oils-om3,6,9no1 2 gummy PO DAILY 01/08/22 03/23/23 History [[place] 3-6-9 Complex] prednisolone acetate 1 % eye 1 drp ophthalmic (eye) BID 01/08/22 03/23/23 History drops,suspension ipratropium bromide 21 mcg (0.03 2 spray intranasal BID #90 mL 04/01/22 03/23/23 Rx %) nasal spray thiamine HCl (vitamin B1) 50 mg 25 mg PO DAILY 09/19/22 03/23/23 History tablet donepezil 5 mg tablet 5 mg PO DAILY #90 tabs 10/13/22 03/23/23 Rx lorazepam 1 mg tablet 1 mg PO BID PRN anxiety #60 tabs 10/16/22 03/23/23 Rx spironolactone 25 mg tablet See Rx Instructions .Route 11/13/22 03/23/23 Rx .COMPLEX #90 tabs sertraline 50 mg tablet 25 mg PO BID 12/05/22 03/23/23 History losartan 100 mg tablet 100 mg PO DAILY #90 tabs 12/31/22 03/23/23 Rx insulin glargine 100 unit/mL (3 55 unit (0.55 mL) subcut PM #55 mL 01/12/23 03/23/23 Rx mL) subcutaneous pen (Basaglar KwikPen U-100 Insulin) levothyroxine 50 mcg tablet See Rx Instructions .Route 01/12/23 03/23/23 Rx .COMPLEX #90 tabs metformin 500 mg tablet,extended 750 mg PO BID 01/12/23 03/23/23 History release 24hr pantoprazole 40 mg tablet,delayed See Rx Instructions .Route 01/26/23 03/23/23 Rx release .COMPLEX #90 tabs ferrous sulfate 325 mg (65 mg 325 mg PO DAILY #90 tabs 01/28/23 03/23/23 Rx iron) tablet pregabalin 100 mg capsule 100 mg PO BID 90 days #180 caps 03/02/23 03/23/23 Rx duloxetine 60 mg capsule,delayed 60 mg PO DAILY #90 caps 03/11/23 03/23/23 Rx release sprinkle Past Med/Surg History Medical History Sensorineural hearing loss (SNHL) of both ears COVID-19 vaccine series completed Lacunar infarction years ago- follows with Dr. Dover Hyperparathyroidism Essential hypertension Esophageal dysmotility Diabetic peripheral neuropathy CKD (chronic kidney disease) Polymyalgia rheumatica Fibromyalgia Diabetes mellitus, type 2 Temporomandibular joint disorder Depression Peripheral neuropathy Fluid retention hands- on HCTZ Sleep apnea 1L O2 HS Iron deficiency anemia Surgical History History of esophagogastroduodenoscopy (EGD) H/O oophorectomy H/O: hysterectomy History of arthroscopy RT/LEFT KNEE History of repair of rotator cuff RT History of total hip arthroplasty LEFT History of total knee replacement RT/LEFT Fusion of spine LUMBAR (X 2 SURGERIES) History of colonoscopy History of tooth extraction History of endoscopic sinus surgery History of nasal septoplasty History of cataract surgery RT/LEFT History of tonsillectomy H/O eye surgery PARTIAL LEFT RETINA REPLACEMENT Family History Sister Breast cancer Family hx colonic polyps Hypertension Skin cancer Metastatic malignant neoplasm to breast Father Myocardial infarction Heart disease Sister Family hx colonic polyps Mother Skin cancer Lung cancer smoker Brother Lung cancer smoker Bladder cancer Heart disease Family/Other Adverse effect of anesthesia Other No family history of adverse response to anesthesia No family history of bleeding disorder Denies family history of Ovarian cancer Prostate cancer Colorectal cancer Social History Smoking Status: Never smoker Tobacco Type: Cigarettes Age Started Using Tobacco: 23; Age Quit Using Tobacco: 31; packs per day: 1; Second Hand Exposure: Yes (parents smoked/ smoked); Do You Dip or Chew Tobacco: No; Hx Alcohol Use: Yes Alcohol type: beer and wine Alcohol Intake Frequency: 2-4 x/Month Hx Substance Use: No Preferred Language: [place] Citizen Communication Ability: Effective Visual Impairment: Limited Hearing Ability: Normal Manager Management Required: No Beliefs That Will Affect Care: None marital status: Current Living Situation: Spouse current occupational status: retired current occupation: used to work running payrolls How many Children do You have: 1 Feels Safe at Home: Yes Childhood Exposure to Second-Hand Smoke: Yes Diet: regular caffeine: Yes during the past year weight has: remained stable Dental Care, Regularly: Yes Physical Activity Frequency: Does not Exercise Seatbelt Use: always Sunscreen Use: Yes (sometimes ) Do you think of yourself as: straight/heterosexual Gender Identity: Female Assistive Devices: Glasses and Oxygen - at Night Review of Systems Review of Systems: As per above Physical Exam Constitutional: WD/WN, vitals as above ENMT: Ears: no external ear abnormality Nose: no external nose abnormality Mucous membranes slightly tacky Respiratory: normal respiratory effort, lungs clear to auscultation Cardiovascular: Rate/Rhythm: regular rate and regular rhythm Gastrointestinal (Abdomen): Abdomen soft, nondistended. +Bowel sounds present Pain at left flank and extending across abdomen intermittently Musculoskeletal: No CVA tenderness Skin: no rashes, warm and dry Neurologic: no focal motor deficits Psychiatric: A+Ox3, euthymic affect Lymphatic: Bennett catheter in place Results & Data Results & Data Vital Signs (Past 12 Hours) Vital Signs Temp Pulse Pulse Resp BP BP Pulse Ox 03/23/23 14:54 76 16 191/89 H 94 03/23/23 12:22 36.7 C 75 18 147/67 H 100 O2 Del Method 03/23/23 14:54 Room Air 03/23/23 12:22 Room Air Diagnostic Findings Abdomen/Pelvis CT 03/23/23 13:29 CT OF THE ABDOMEN AND PELVIS WITHOUT CONTRAST CLINICAL HISTORY: Left flank pain. COMPARISON STUDY: CT of the abdomen and pelvis December 17, 2022. TECHNIQUE: Axial images of the abdomen and pelvis were obtained without IV contrast. Images were reviewed in the axial, sagittal, and coronal planes. Automated exposure control was utilized for the study. A dose lowering technique was utilized adhering to the principles of ALARA. FINDINGS: There is a trace right pleural effusion. A 5 mm mid left ureteral calculus at the L5-S1 level results in moderate left hydronephrosis. Multiple left renal calculi measure up to 6 mm. There are no right ureteral calculi. There is no right hydronephrosis. A punctate right renal calculus is present a 1.1 cm left renal lesion on image 147 of 393 measures above water attenuation. This is similar to CT of December 17, 2022. This remains indeterminate. Spleen, adrenal glands and pancreas are unremarkable on unenhanced exam. No abdominal or pelvic lymphadenopathy is present. Left hip are opacities incidentally noted. MATTRESS PACKER shunt is partially imaged. Visualized portions are intact. IMPRESSION: 1. 5 mm mid left ureteral calculus results in moderate left hydronephrosis. 2. Multiple left renal calculi. Punctate right renal calculus. No right hydronephrosis. No right ureteral calculi. 3. Trace right pleural effusion. ACT 112: Negative or not required by law. Electronically signed by: Riley Chaparro M.D. 03/23/2023 2:39 PM Supervising Physician Co-Signing Physician Notes Patient seen and examined, chart reviewed, case discussed with Jackelin Rivera, and I agree with the assessment and plan as above except as otherwise noted Labs and images reviewed 77-year-old female with past medical history of lacunar CVA, DM 2, hypertension, hypothyroidism presents with acute elevation of baseline creatinine of approximately 1.21.4 to 4.25 on admission with potassium 4.8. CT shows 5 mm left ureteral calculus with moderate left hydro, multiple left calculi. Patient is suspected to have obstructive renal failure due to uterolithiasis. Last thursday had flank pain. Could nto void at all for 24hours, then improved after thanksgiving. Since then reduced appetite, voiding daily with some dysuria. Hx cysto with small stones in the past but no obstruction. No body aches, no chills. Ate breakfast at 10am, NPO pending cysto. RAMO/[place] are held.Agree with above. Recommend trending potassium every 4every 6 hours until cystoscopy is able to be performed. Potassium upper limit of normal on admit. Potassium sparing antihypertensives have been held. Clinically stable, obstructive TEOODRA. No bacteria, nitrate negative urine. No leukocytosis patient is afebrile. T2DM, metformin held. Basal insulin dose reduced by 30% and basal-bolus added. bsg checks q6h while npo. N.p.o. with supplemental IV fluids pending stent placement. Resident Activity Tracking Resident Involvement: Resident Care Provided Care Provided: Adult [facility]"
--- NOTE | 2023-03-23 16:21 | Urology Consultation ---
<Statement entered by Shahzad Son MD - 03/23/23 17:31> I have discussed Ms. Chowdary's case with TAMARA Trent and agree with the above documentation. She has what appears to be an obstructing left ureteral stone and a significant TEODORA. Although some of the kidney injury may be related to dehydration and other causes, her right kidney does appear somewhat smaller than the left and there may be a component of obstruction. We will plan on cystoscopy, left retrograde pyelogram, left ureteral stent placement to ensure maximal urinary drainage. I reviewed the risks and benefits of the surgery with the patient who expressed understanding and agreed to proceed with surgery. -Shahzad Son MD. Date of Consultation March 23, 2023 Assessment & Plan (1) Left ureteral calculus: (2) Hydronephrosis: (3) TEODORA (acute kidney injury): Plan 77yo/F who presented with left flank pain and was found to have an obstructing left ureteral stone and TEODORA. Afebrile, hypertensive. Labs reviewed No leukocytosis and creatinine 4.25. Continue to trend. Urinalysis not indicative of infection, culture pending. We discussed cystoscopy and stent placement. Ureteral stents were discussed as well as postoperative issues and pain management. She is aware a second procedure may be needed for stone treatment. Risks and benefits were discussed. All questions were answered. Plan to proceed to OR today for cystoscopy, left retrograde pyelogram, left ureteral stent placement with Dr. Son. Will cover with IV Ancef preoperatively. Keep NPO. Urology will follow. History of Present Illness History of Present Illness 77-year-old female who presented to the ED today with worsening left flank pain today with associated nausea. On arrival she was afebrile and hemodynamically stable. Labs show no leukocytosis and a creatinine up to 4.25 (previously 1.39). Urinalysis with 3+ blood, trace LE, negative nitrite, negative bacteria. CT abdomen pelvis demonstrated a 5 mm mid left ureteral stone resulting in moderate left hydronephrosis. Additional multiple left renal stones and punctate right renal stones also noted. Patient admitted to medicine service for continued care and management. Patient examined at bedside in the ED. Awake, resting in bed on arrival. No acute distress. She had breakfast around 10 AM. She denies fevers, chills, nausea, vomiting. Voiding without issue. Denies hematuria. Left flank pain currently managed with medication. Patient is known to the urology service, follows with Dr. Ray. Recently underwent hematuria work-up. She had a CT urogram which did not show any upper tract filling defects. There was an indeterminate 1.1 cm left interpolar lesion that radiology said was stable but recommended a dedicated CT scan of the kidney in 6 months. Her CX bladder test came back intermediate. She reports recently being told about kidney stones during hematuria workup. Denies prior history of stones or prior intervention. Allergies Allergy/AdvReac Type Severity Reaction Status Date / Time cetirizine Allergy Intermediate RASH AND Verified 02/05/23 16:18 ITCH fexofenadine Allergy Intermediate ALLLEGRA Verified 02/05/23 16:18 AND ZYRTEC RASH AND ITCH loratadine Allergy Intermediate RASH Verified 02/05/23 16:18 Penicillins Allergy Intermediate RASH Verified 02/05/23 16:18 glimepiride AdvReac Intermediate high blood Verified 02/05/23 16:18 sugars pioglitazone AdvReac Intermediate Palpitation Verified 02/05/23 16:18 s simvastatin AdvReac Intermediate MYALGIA Verified 02/05/23 16:18 doxycycline AdvReac Mild Gastrointestinal Verified 02/05/23 16:18 Upset gabapentin AdvReac Mild Anxiety Verified 02/05/23 16:18 lisinopril AdvReac Mild dehydration Verified 02/05/23 16:18 Home Medications Medication Instructions Recorded Confirmed Type aspirin 81 mg tablet,delayed 81 mg PO QAM 07/22/18 03/23/23 History release cyanocobalamin (vitamin B-12) 1,000 mcg PO QAM 07/22/18 03/23/23 History 1,000 mcg tablet (Vitamin B-12) blood sugar diagnostic (OneTouch #10 ea 09/29/18 02/05/23 Rx Ultra Blue Test Strip) lancets 33 gauge (OneTouch Delica #100 ea 09/29/18 02/05/23 Rx Lancets) simethicone 180 mg capsule (Gas-X 180 mg PO DAILY PRN abdominal 09/29/18 03/23/23 Rx Ultra-Strength) distention #30 caps cholecalciferol (vitamin D3) 50 4,000 units PO DAILY #30 caps 02/17/19 03/23/23 Rx mcg (2,000 unit) capsule (Vitamin D3) sodium chloride 2 % eye drops 1 drp OPL HS 08/24/20 03/23/23 History (Reji 128) acetaminophen 325 mg capsule 325 mg PO QID PRN Pain 11/20/20 03/23/23 History ascorbic acid (vitamin C) 100 mg 100 mg PO DAILY 11/20/20 03/23/23 History tablet docusate sodium 100 mg capsule 100 mg PO DAILY PRN Constipation 11/20/20 03/23/23 History (Colace) lidocaine 4 % topical patch 1 patch topical DAILY PRN Pain 11/20/20 03/23/23 History (Aspercreme (lidocaine)) blood-glucose meter (OneTouch #1 ea 04/12/21 02/05/23 Rx Ultra2 Meter) Saccharomyces boulardii 250 mg 10,000 mmu cells PO DAILY 12/11/21 03/23/23 History capsule (Daily Probiotic (S. boulardii)) fish,bora,flax oils-om3,6,9no1 2 gummy PO DAILY 01/08/22 03/23/23 History [[place] 3-6-9 Complex] prednisolone acetate 1 % eye 1 drp ophthalmic (eye) BID 01/08/22 03/23/23 History drops,suspension ipratropium bromide 21 mcg (0.03 2 spray intranasal BID #90 mL 04/01/22 03/23/23 Rx %) nasal spray thiamine HCl (vitamin B1) 50 mg 25 mg PO DAILY 09/19/22 03/23/23 History tablet donepezil 5 mg tablet 5 mg PO DAILY #90 tabs 10/13/22 03/23/23 Rx lorazepam 1 mg tablet 1 mg PO BID PRN anxiety #60 tabs 10/16/22 03/23/23 Rx spironolactone 25 mg tablet See Rx Instructions .Route 11/13/22 03/23/23 Rx .COMPLEX #90 tabs sertraline 50 mg tablet 25 mg PO BID 12/05/22 03/23/23 History losartan 100 mg tablet 100 mg PO DAILY #90 tabs 12/31/22 03/23/23 Rx insulin glargine 100 unit/mL (3 55 unit (0.55 mL) subcut PM #55 mL 01/12/23 03/23/23 Rx mL) subcutaneous pen (Fawad Raymundo U-100 Insulin) levothyroxine 50 mcg tablet See Rx Instructions .Route 01/12/23 03/23/23 Rx .COMPLEX #90 tabs metformin 500 mg tablet,extended 750 mg PO BID 01/12/23 03/23/23 History release 24hr pantoprazole 40 mg tablet,delayed See Rx Instructions .Route 01/26/23 03/23/23 Rx release .COMPLEX #90 tabs ferrous sulfate 325 mg (65 mg 325 mg PO DAILY #90 tabs 01/28/23 03/23/23 Rx iron) tablet pregabalin 100 mg capsule 100 mg PO BID 90 days #180 caps 03/02/23 03/23/23 Rx duloxetine 60 mg capsule,delayed 60 mg PO DAILY #90 caps 03/11/23 03/23/23 Rx release sprinkle Patient History Medical History Sensorineural hearing loss (SNHL) of both ears COVID-19 vaccine series completed Lacunar infarction years ago- follows with Dr. Dover Hyperparathyroidism Essential hypertension Esophageal dysmotility Diabetic peripheral neuropathy CKD (chronic kidney disease) Polymyalgia rheumatica Fibromyalgia Diabetes mellitus, type 2 Temporomandibular joint disorder Depression Peripheral neuropathy Fluid retention hands- on HCTZ Sleep apnea 1L O2 HS Iron deficiency anemia Surgical History History of esophagogastroduodenoscopy (EGD) H/O oophorectomy H/O: hysterectomy History of arthroscopy RT/LEFT KNEE History of repair of rotator cuff RT History of total hip arthroplasty LEFT History of total knee replacement RT/LEFT Fusion of spine LUMBAR (X 2 SURGERIES) History of colonoscopy History of tooth extraction History of endoscopic sinus surgery History of nasal septoplasty History of cataract surgery RT/LEFT History of tonsillectomy H/O eye surgery PARTIAL LEFT RETINA REPLACEMENT Family History Sister Breast cancer Family hx colonic polyps Hypertension Skin cancer Metastatic malignant neoplasm to breast Father Myocardial infarction Heart disease Sister Family hx colonic polyps Mother Skin cancer Lung cancer smoker Brother Lung cancer smoker Bladder cancer Heart disease Family/Other Adverse effect of anesthesia Other No family history of adverse response to anesthesia No family history of bleeding disorder Denies family history of Ovarian cancer Prostate cancer Colorectal cancer Social History Smoking Status: Never smoker Tobacco Type: Cigarettes Age Started Using Tobacco: 23; Age Quit Using Tobacco: 31; packs per day: 1; Second Hand Exposure: Yes (parents smoked/ smoked); Do You Dip or Chew Tobacco: No; Hx Alcohol Use: Yes Alcohol type: beer and wine Alcohol Intake Frequency: 2-4 x/Month Hx Substance Use: No Preferred Language: Citizen [place] Communication Ability: Effective Visual Impairment: Limited Hearing Ability: Normal Manager Research Development Required: No Beliefs That Will Affect Care: None marital status: Current Living Situation: Spouse current occupational status: retired current occupation: used to work running payrolls How many Children do You have: 1 Feels Safe at Home: Yes Childhood Exposure to Second-Hand Smoke: Yes Diet: regular caffeine: Yes during the past year weight has: remained stable Dental Care, Regularly: Yes Physical Activity Frequency: Does not Exercise Seatbelt Use: always Sunscreen Use: Yes (sometimes ) Do you think of yourself as: straight/heterosexual Gender Identity: Female Assistive Devices: Glasses and Oxygen - at Night Review of Systems Review of Systems: All systems reviewed & are unremarkable except as noted in HPI & below Physical Exam Constitutional: well developed and well nourished; no acute distress Neck: normal visual inspection Respiratory: normal respiratory effort; no respiratory distress and no labored breathing Musculoskeletal: Head/Neck/Chest: normocephalic Skin: No visible rashes or lesions to exposed skin areas Neurologic: moves all extremities and awake Psychiatric: A+Ox3, euthymic affect Results & Data Vital Signs (Past 12 Hours) Vital Signs Temp Pulse Pulse Resp BP BP Pulse Ox 03/23/23 14:54 76 16 191/89 H 94 03/23/23 12:22 36.7 C 75 18 147/67 H 100 O2 Del Method 03/23/23 14:54 Room Air 03/23/23 12:22 Room Air PG Care Time/CCT Total # of Minutes Spent Total Time Spent with Patient: Total time spent is greater than 50% in coordination of care (as documented) at patient's floor/unit and/or counseling patient: Coding Level of Care Code 63695 INT INP/OBS CARE 2/55MIN Diagnoses Left ureteral calculus N20.1 Hydronephrosis N13.30 TEODORA (acute kidney injury) N17.9
--- NOTE | 2023-03-23 16:36 | Billing Data ---
Date of Service March 23, 2023 Coding Level of Care Code 65654 INT INP/OBS CARE
[2023-03-23] MEDS ORDERED: MIDAZOLAM HCL 1 MG/ML 2ML VIAL ONE (16:38)
[2023-03-23] MEDS ORDERED: GLUCOSE 10 TAB/TUBE PO PRN (16:38)
[2023-03-23] MEDS ORDERED: PROPOFOL IV EMULSION 10 MG/ML 20 ML VIAL IV ONE (16:38)
[2023-03-23] MEDS ORDERED: GLUCAGON FOR INJ 1 MG VIAL SQ PRN (16:38)
[2023-03-23] MEDS ORDERED: fentaNYL citrate PF 100 MCG/2 ML VIAL ONE (16:38)
[2023-03-23] MEDS ORDERED: CARBOHYDRATES FOR HYPOGLYCEMIA PO PRN (16:38)
[2023-03-23] MEDS ORDERED: DEXTROSE 50% 50 ML SYRINGE IV PRN (16:38)
[2023-03-23] MEDS ORDERED: ONDANSETRON INJ 2 MG/ML 2 ML VIAL ONE ×3 (16:38→16:40)
[2023-03-23] MEDS ORDERED: LIDOCAINE 2% 2 ML VIAL/AMP(20MG/ML) INFIL ONE (16:38)
[2023-03-23] MEDS ORDERED: GLUCOSE 40% GEL 15 GM TUBE PO PRN (16:38)
[2023-03-23] MEDS ORDERED: ceFAZolin 2000MG 2,000 MG/15 ML SYR IV ONE (16:50)
--- OUTSIDE RECORDS SUMMARY | 2023-03-23 16:55 | External Medical Summary | Continuity of Care Document ---
Author Name Unknown Organization [place] [address] [address] [place] [address] [place] [id number] Care Team Providers Care Order Dispatcher Name Role Phone Benita Bergeron Primary Care Physician [phone] [id number] Date(s): 10/10/22 - 10/10/22 [place] [address] [address] [facility] [address] [place] [address] [phone] Encounter Diagnosis Body mass index [BMI] 34.0-34.9, adult(Discharge Diagnosis) - 10/10/22 S/P INTERLACER shunt(Discharge Diagnosis) - 10/10/22 Discharge Disposition: Home or Self Care Attending Physician: AL Rasmussen, Yumi Allergies, Adverse Reactions, Alerts Substance Reaction Severity Status doxycycline GI Upset/Pain Active lisinopril dehydration Active simvastatin leg cramps/myalgia Active gabapentin Unknown reaction Active glimepiride dehydration - went to hospital Active penicillins rash Active Claritin Rash Active Bertha Rash Active pioglitazone Unknown reaction Active ZyrTEC Rash Active Immunizations Given and Recorded Vaccine Date Status Refusal Reason SARS-CoV-2 (COVID-19) mRNA-1273 vaccine 1 06/22/20 Recorded SARS-CoV-2 (COVID-19) mRNA-1273 vaccine 2 05/25/20 Recorded tetanus/diphtheria/pertuss, acel (Tdap) 3 12/07/15 Recorded tetanus/diphtheria/pertuss, acel (Tdap) 4 06/20/14 Recorded pneumococcal 13-valent vaccine 5 12/19/14 Recorded pneumococcal 23-valent vaccine 6 05/29/11 Recorded 1Result Comment: 2021-01-10: Historical information-source unspecified 2Result Comment: 2021-01-10: Historical information-source unspecified 3Result Comment: 2021-01-10: Historical information-source unspecified 4Result Comment: 2021-01-10: Historical information-source unspecified 5Result Comment: 2021-01-10: Historical information-source unspecified 6Result Comment: 2021-01-10: Historical information-source unspecified Medications Aricept Start: 09/27/20 16:29:00 EDT, 5 mg =, PO, qhs Start Date: 09/27/20 Status: Ordered Aspercreme with Lidocaine Start: 09/27/20 16:31:00 EDT, 1 appl, topical, PRN Start Date: 09/27/20 Status: Ordered aspirin Start: 09/27/20 16:29:00 EDT, 81 mg =, PO, Daily Start Date: 09/27/20 Status: Ordered Ativan 1 mg oral tablet Start: 12/25/20 13:52:00 EDT, 1 tab, PO, bid, PRN: as needed for anxiety Start Date: 12/25/20 Status: Ordered Basaglar KwikPen 100 units/mL subcutaneous solution Start: 09/27/20 16:29:00 EDT, 45 units, subQ, qhs Start Date: 09/27/20 Status: Ordered Cymbalta Start: 09/27/20 16:29:00 EDT, 60 mg =, PO, qAM Start Date: 09/27/20 Status: Ordered FiberCon Start: 12/25/20 13:54:00 EDT, 1 tsp, PO, PRN Start Date: 12/25/20 Status: Ordered Gas-X Start: 09/27/20 16:30:00 EDT, unknown, PO, Daily Start Date: 09/27/20 Status: Ordered Iron Chews Start: 09/27/20 16:30:00 EDT, 142 mg =, PO, Daily Start Date: 09/27/20 Status: Ordered levothyroxine 25 mcg (0.025 mg) oral tablet TAKE 1 TABLET BY MOUTH EVERY DAY Start Date: 11/25/21 Status: Ordered losartan 50 mg oral tablet Start: 10/18/20 13:49:00 EDT, 1 tab, PO, Daily Start Date: 10/18/20 Status: Ordered Lyrica Start: 09/27/20 16:29:00 EDT, 75 mg =, PO, bid Start Date: 09/27/20 Status: Ordered metFORMIN 500 mg oral tablet Start: 12/25/20 13:49:00 EDT, 1 tab, PO, bid Start Date: 12/25/20 Status: Ordered prednisoLONE acetate Start: 09/27/20 16:28:00 EDT, 1 drop, qAM, both eyes Start Date: 09/27/20 Status: Ordered Protonix Start: 09/27/20 16:28:00 EDT, 40 mg =, PO, Daily Start Date: 09/27/20 Status: Ordered spironolactone Start: 10/10/22 11:54:00 EDT Start Date: 10/10/22 Status: Ordered Systane Start: 09/27/20 16:28:00 EDT, 1 drop, both eyes, PRN: dry eyes Start Date: 09/27/20 Status: Ordered Tylenol Start: 09/27/20 16:30:00 EDT, 325 mg =, PO, PRN: as needed for pain Start Date: 09/27/20 Status: Ordered Vitamin B1 100 mg oral tablet Start: 10/18/20 13:50:00 EDT, 1 tab, PO, qAM Start Date: 10/18/20 Status: Ordered Vitamin B12 Start: 09/27/20 16:30:00 EDT, 100 mcg =, PO, Daily Start Date: 09/27/20 Status: Ordered Vitamin C Start: 12/25/20 13:56:00 EDT, 120 mg =, PO, qAM Start Date: 12/25/20 Status: Ordered Vitamin D3 Start: 11/26/11 8:28:00 EDT, 2,000 iu, PO, Daily Start Date: 11/26/11 Status: Ordered Mental Status 10/10/22 Barriers to Learning one year None evide nt Mandatory Health Literacy Documentation Yes Health Literacy Communication Barriers N ever Primary Language Maldivian Problem List Condition Confirmation Course Effective Dates Status H ealth Status Informant Anxiety Confirmed Active DM (diabetes mellitus) Confirmed Active NPH (normal pressure hydrocephalus) Confirmed Active Normal pressure hydrocephalus Confirmed Active Reflux Confirmed Active Weight monitoring Confirmed Active Diagnosis Diagnosis Type Effective Dates Health Status Cl inical Service Informant Body mass index [BMI] 34.0-34.9, adult Discharge Diagnosis 10/10/22 Non-Specified S/P INTERLACER shunt Discharge Diagnosis 10/10/22 Non-Specified Procedures Procedure Date Related Diagnosis Body Site Status Biopsy of breast (1969's and before 2017) 2017 Completed Shave biopsy and cauterizati on of skin 1 08/28/14 Completed Right Rotator cuff repair 2014 Completed Lumbar Back Surgery x 2 08/2011 C ompleted Left Hip replacement 05/27/11 Comp leted Bilateral Knee replacement 2009 Completed Cornea transplant recipient, Partial Left 2009 Completed Repair deviated Septum 2009 Co mpleted Tonsillectomy 2009 Completed Total Hysterectomy 2009 Comple joslyn CE - Cataract extraction, BE 1994 Completed Exploratory laparotomy 1979 Co mpleted 1with curettage Vital Signs Most recent to oldest [Reference Range]: 1 Height 160 cm (10/10/22 11:55 AM) Patient Weight 88.1 kg (10/10/22 11:55 AM) Body Mass Index 34.41 kg/m2 (10/10/22 11:55 AM) Heart Rate 93 bpm (10/10/22 11:55 AM) Blood Pressure 140/66mmHg (10/10/22 11:55 AM) Cuff Pulse Pressure 74 mmHg (10/10/22 11:55 AM) Social History Social History Type Response Smoking Status Never smoked cigaret giselle Sex Female Implantable Device List Procedure Provider Procedure Date Device Type Site Unknown Unknown 01/10/21 Unknown Unknown Device Identifier Serial Number Lot or Batch Number Manufacturing Date Expiration Date Distinct Identification Code MRI Safety Implantable Status Assigning Authority Unknown Unknown [id number] Unknown 11/25/23 Unknown Unknown Active Unk nown Unknown Unknown [id number] Unknown 11/25/23 Unknown Unknown Active Unk nown Unknown Unknown [id number] Unknown 08/20/23 Unknown Unknown Active Unknown Unknown Unknown [id number] Unknown 08/24/21 Unknown Unknown Active Unk nown Unknown Unknown [id number] Unknown 09/24/22 Unknown Unknown Active Unkn own Patient Care team information Care Team Personnel Name: TAMARA Capone Tara Position: Nurse Pract - Family Med Member Role: Lifetime Relationship Address: Address: [address] [place] [address], [place] [address] [place] Name: AL Do Ashley Position: Physician Veneer Department Manager - Neurosurgery Member Role: Lifetime Relationship Address: Address: [address] [place] [address] [address] [place] [address] Name: TAMARA Bergeron Jenna Lynn Position: Referring Member Role: Primary Care Provider Address: Address: [facility] [address] [place] [address] [place] Name: AL Salazar Lynn Position: Physician Veneer Department Manager Exempt - Vasc Surg Member Role: Lifetime Relationship Address: Address: [address] [place] [address], [place] [address] Care Team Related Persons Name: SIOMARA LOOMIS Address: home [address] [facility] [place] [id number] Name: GENIE LOOMIS Address: home [address] [facility], [id number]
[2023-03-23] MEDS ORDERED: LACTATED RINGER'S 1,000 ML IV SCH (17:15)
[2023-03-23] MEDS ORDERED: ceFAZolin 2,000 MG/15 ML IV PUSH IV ONE (17:27)
--- NOTE | 2023-03-23 17:55 | Anesthesiology Consultation ---
Date of Service March 23, 2023 Assessment & Plan Chart Review Chart Review: Acceptable Risk for Surgery Consults Requested none History Surgery Operation Date: 03/23/23 14:55 Proposed Procedures p Cystoscopy Left Retrograde, Left Stent Placement - Shahzad Son MD Height/Weight Height: 5 ft 3 in Weight: 87.4 kg Allergies Allergy/AdvReac Type Severity Reaction Status Date / Time cetirizine Allergy Intermediate RASH AND Verified 02/05/23 16:18 ITCH fexofenadine Allergy Intermediate ALLLEGRA Verified 02/05/23 16:18 AND ZYRTEC RASH AND ITCH loratadine Allergy Intermediate RASH Verified 02/05/23 16:18 Penicillins Allergy Intermediate RASH Verified 02/05/23 16:18 glimepiride AdvReac Intermediate high blood Verified 02/05/23 16:18 sugars pioglitazone AdvReac Intermediate Palpitation Verified 02/05/23 16:18 s simvastatin AdvReac Intermediate MYALGIA Verified 02/05/23 16:18 doxycycline AdvReac Mild Gastrointestinal Verified 02/05/23 16:18 Upset gabapentin AdvReac Mild Anxiety Verified 02/05/23 16:18 lisinopril AdvReac Mild dehydration Verified 02/05/23 16:18 Medications Home Medications Medication Instructions Recorded Confirmed Last Taken aspirin 81 mg tablet,delayed 81 mg PO QAM 07/22/18 03/23/23 10/18/19 08:00 release cyanocobalamin (vitamin B-12) 1,000 mcg PO QAM 07/22/18 03/23/23 10/18/19 08:00 1,000 mcg tablet (Vitamin B-12) blood sugar diagnostic (OneTouch #10 ea 09/29/18 02/05/23 Unknown Ultra Blue Test Strip) lancets 33 gauge (OneTouch Delica #100 ea 09/29/18 02/05/23 Unknown Lancets) simethicone 180 mg capsule (Gas-X 180 mg PO DAILY PRN abdominal 09/29/18 03/23/23 08/24/20 Ultra-Strength) distention #30 caps cholecalciferol (vitamin D3) 50 4,000 units PO DAILY #30 caps 02/17/19 03/23/23 10/18/19 08:00 mcg (2,000 unit) capsule (Vitamin D3) sodium chloride 2 % eye drops 1 drp OPL HS 08/24/20 03/23/23 08/23/20 (Reji 128) acetaminophen 325 mg capsule 325 mg PO QID PRN Pain 11/20/20 03/23/23 Unknown ascorbic acid (vitamin C) 100 mg 100 mg PO DAILY 11/20/20 03/23/23 Unknown tablet docusate sodium 100 mg capsule 100 mg PO DAILY PRN Constipation 11/20/20 03/23/23 Unknown (Colace) lidocaine 4 % topical patch 1 patch topical DAILY PRN Pain 11/20/20 03/23/23 Unknown (Aspercreme (lidocaine)) blood-glucose meter (OneTouch #1 ea 04/12/21 02/05/23 Unknown Ultra2 Meter) Saccharomyces boulardii 250 mg 10,000 mmu cells PO DAILY 12/11/21 03/23/23 Unknown capsule (Daily Probiotic (S. boulardii)) fish,bora,flax oils-om3,6,9no1 2 gummy PO DAILY 01/08/22 03/23/23 Unknown [[place] 3-6-9 Complex] prednisolone acetate 1 % eye 1 drp ophthalmic (eye) BID 01/08/22 03/23/23 Unknown drops,suspension ipratropium bromide 21 mcg (0.03 2 spray intranasal BID #90 mL 04/01/22 03/23/23 Unknown %) nasal spray thiamine HCl (vitamin B1) 50 mg 25 mg PO DAILY 09/19/22 03/23/23 Unknown tablet donepezil 5 mg tablet 5 mg PO DAILY #90 tabs 10/13/22 03/23/23 Unknown lorazepam 1 mg tablet 1 mg PO BID PRN anxiety #60 tabs 10/16/22 03/23/23 Unknown spironolactone 25 mg tablet See Rx Instructions .Route 11/13/22 03/23/23 Unknown .COMPLEX #90 tabs sertraline 50 mg tablet 25 mg PO BID 12/05/22 03/23/23 Unknown losartan 100 mg tablet 100 mg PO DAILY #90 tabs 12/31/22 03/23/23 Unknown insulin glargine 100 unit/mL (3 55 unit (0.55 mL) subcut PM #55 mL 01/12/23 03/23/23 Unknown mL) subcutaneous pen (Fawad Raymundo U-100 Insulin) levothyroxine 50 mcg tablet See Rx Instructions .Route 01/12/23 03/23/23 Unknown .COMPLEX #90 tabs metformin 500 mg tablet,extended 750 mg PO BID 01/12/23 03/23/23 Unknown release 24hr pantoprazole 40 mg tablet,delayed See Rx Instructions .Route 01/26/23 03/23/23 Unknown release .COMPLEX #90 tabs ferrous sulfate 325 mg (65 mg 325 mg PO DAILY #90 tabs 01/28/23 03/23/23 Unknown iron) tablet pregabalin 100 mg capsule 100 mg PO BID 90 days #180 caps 03/02/23 03/23/23 Unknown duloxetine 60 mg capsule,delayed 60 mg PO DAILY #90 caps 03/11/23 03/23/23 Unknown release sprinkle Active Medications Generic Name Dose Route Start Last Admin Trade Name Freq PRN Reason Stop Dose Admin Lactated Ringer's 1,000 mls @ 15 mls/hr 03/23/23 17:15 03/23/23 17:15 Lr IV 04/22/23 17:14 15 mls/hr .Q24H LANE Administration NPO Date Last Intake of Fluids: 03/23/23 Time Last Intake of Fluids: 10:00 Date Last Intake of Solids: 03/23/23 Time Last Intake of Solids: 10:00 Past Medical History Medical History Sensorineural hearing loss (SNHL) of both ears COVID-19 vaccine series completed Lacunar infarction years ago- follows with Dr. Dover Hyperparathyroidism Essential hypertension Esophageal dysmotility Diabetic peripheral neuropathy CKD (chronic kidney disease) Polymyalgia rheumatica Fibromyalgia Diabetes mellitus, type 2 Temporomandibular joint disorder Depression Peripheral neuropathy Fluid retention hands- on HCTZ Sleep apnea 1L O2 HS Iron deficiency anemia Past Family History Family History Sister Breast cancer Family hx colonic polyps Hypertension Skin cancer Metastatic malignant neoplasm to breast Father Myocardial infarction Heart disease Sister Family hx colonic polyps Mother Skin cancer Lung cancer smoker Brother Lung cancer smoker Bladder cancer Heart disease Family/Other Adverse effect of anesthesia Other No family history of adverse response to anesthesia No family history of bleeding disorder Denies family history of Ovarian cancer Prostate cancer Colorectal cancer Past Surgical History Surgical History History of esophagogastroduodenoscopy (EGD) H/O oophorectomy H/O: hysterectomy History of arthroscopy RT/LEFT KNEE History of repair of rotator cuff RT History of total hip arthroplasty LEFT History of total knee replacement RT/LEFT Fusion of spine LUMBAR (X 2 SURGERIES) History of colonoscopy History of tooth extraction History of endoscopic sinus surgery History of nasal septoplasty History of cataract surgery RT/LEFT History of tonsillectomy H/O eye surgery PARTIAL LEFT RETINA REPLACEMENT Social History Smoking Status: Never smoker Do You Dip or Chew Tobacco: No Hx Alcohol Use: Yes Alcohol type: beer and wine alcohol intake frequency: other Hx Substance Use: No substance use type: does not use Physical Exam Vital Signs Last Vital Signs Temp 36.9 C 03/23/23 17:22 Pulse 70 03/23/23 17:22 Resp 19 03/23/23 17:22 BP 139/65 03/23/23 17:22 Pulse Ox 93 03/23/23 17:22 O2 Del Method Room Air 03/23/23 17:22 Testing Laboratory Results 03/23/23 12:47 03/23/23 12:47 Urine Color Yellow 03/23/23 Unknown Urine Appearance Clear (Clear) 03/23/23 Unknown Urine pH 5.0 (4.5-7.5) 03/23/23 Unknown Ur Specific [place] 1.019 (1.000-1.030) 03/23/23 Unknown Urine Protein Negative (Negative) 03/23/23 Unknown Urine Glucose (UA) Negative (Negative) 03/23/23 Unknown Urine Ketones Negative (Negative) 03/23/23 Unknown Urine Nitrite Negative (Negative) 03/23/23 Unknown Ur Leukocyte Esterase Trace (Negative) H 03/23/23 Unknown Urine WBC (Auto) 5-10 /hpf (0-5) H 03/23/23 Unknown Urine RBC (Auto) 10-30 /hpf (0-4) H 03/23/23 Unknown U Hyaline Cast (Auto) 1-5 /lpf (0-5) 03/23/23 Unknown U Epithel Cells (Auto) 5-10 /lpf (0-5) H 03/23/23 Unknown Urine Bacteria (Auto) Negative (Negative) 03/23/23 Unknown
[2023-03-23] MEDS ORDERED: ePHEDrine sulfate 50 MG/ML AMP IV PRN (17:56)
[2023-03-23] MEDS ORDERED: ATROPINE SULFATE 0.1 MG/ML 10ML SYR IV PRN (17:56)
[2023-03-23] MEDS ORDERED: fentaNYL citrate PF 100 MCG/2 ML VIAL IV PRN (17:56)
[2023-03-23] MEDS ORDERED: ONDANSETRON INJ 2 MG/ML 2 ML VIAL IV PRN (17:56)
[2023-03-23] MEDS ORDERED: DIATRIZOATE MEGLUMINE 30% 100ML VIAL INSTIL ONE (18:02)
--- NOTE | 2023-03-23 18:09 | Operative Report ---
PG Post Operative Report Pre & Post Diagnosis Operation Date: 03/23/23 14:55 Pre-Op Diagnosis: Left ureteral calculus, Hydronephrosis, acute kidney injury Post-Op Diagnosis: Left ureteral calculus, Hydronephrosis, acute kidney injury I identified the patient and participated in the time-out.: Yes Procedure Operation Date: 03/23/23 14:55 Actual Procedures p Cystoscopy, Left Retrograde, Left Stent Placement - Shahzad Son MD Surgeon Shahzad Son MD Ink Printer none Estimated Blood Loss 0 Findings Consistent with Post-Op Diagnosis Specimens none Drains 6 Fr x 24 cm double-J ureteral stent in left ureter 16 Angolan Juarez catheter per urethra Anesthesia Type MAC Complications none Disposition Accompanied Patient To Recovery: Yes Disposition: Recovery Room Indications This is a 77 year old female who presented to the ED with flank pain, found to have a left ureteral stone with significant TEODORA. She has been brought to the OR for left ureteral stent placement to allow maximal drainage of the kidney. Description of Procedure The patient was identified in the holding area and informed consent was c onfirmed. She was marked on the left side, then was taken to the operating room where anesthesia was initiated. She was placed in the dorsal lithotomy position with all pressure points appropriately padded. She was prepped and draped in the usual sterile fashion and a preoperative timeout was performed. A well-lubricated cystoscope was inserted per urethra and panendoscopy was performed. The urethra was normal in appearance. The bladder was of normal size with ureteral orifices in orthotopic position. There was some erythema from catheter irritation. No tumors were appreciated. The left ureteral orifice was identified and cannulated with a 5 Angolan open- ended catheter. A retrograde pyelogram was performed demonstrating mild fullness of the proximal ureter and collecting system. A 0.038" ZIPwire was advanced to the level of the kidney under fluoroscopic guidance. Over the wire, a 6 Angolan x 24 centimeter double-J ureteral stent was advanced. When the wire was removed, the proximal curl was visualized in the kidney with x-ray, and the distal curl visualized in the bladder with the cystoscope. There was drainage of turbid urine through the stent. All instrumentation was removed. A 16 Angolan Juarez catheter was placed per urethra. The balloon was inflated with 10 mL of normal saline and the catheter was attached to gravity drainage. The patient was then awakened from anesthesia and was brought to the PACU in stable condition. I attest to the content of the Intraoperative Record and any orders documented therein. Any exceptions are noted below.
--- NOTE | 2023-03-23 18:52 | Anesthesiology Progress Note ---
Date of Service March 23, 2023 Anesthesia Post Procedure Vital Signs Vital Signs: Temp Pulse Pulse Resp BP BP BP 03/23/23 18:41 36.4 C L 74 18 168/76 H 03/23/23 18:31 68 15 163/69 H 03/23/23 18:21 70 20 114/92 03/23/23 18:11 36.3 C L 72 14 129/56 L 03/23/23 17:22 36.9 C 70 19 139/65 03/23/23 16:59 74 16 149/80 H 03/23/23 14:54 76 16 191/89 H 03/23/23 12:22 36.7 C 75 18 147/67 H Pulse Ox O2 Del Method O2 Flow Rate 03/23/23 18:41 97 Room Air 03/23/23 18:31 99 Oxymask 4 03/23/23 18:21 97 Oxymask 6 03/23/23 18:11 94 Oxymask 6 03/23/23 17:22 93 Room Air 03/23/23 16:59 95 Room Air 03/23/23 14:54 94 Room Air 03/23/23 12:22 100 Room Air Transfer of Care Handoff Completed per policy Notes Mental Status: alert / awake / arousable and participated in evaluation Patient Amnestic to Procedure: Yes Nausea / Vomiting: adequately controlled Pain: adequately controlled Airway Patency, RR, SpO2: stable & adequate BP & HR: stable & adequate Hydration State: stable & adequate Anesthetic Complications: no major complications apparent
[2023-03-23] MEDS ORDERED: DOCUSATE SODIUM 100 MG CAP PO PRN (20:32)
[2023-03-23] MEDS ORDERED: LIDOCAINE 5% 1 PATCH TD PRN (21:13)
[2023-03-23 21:40] LABS: BUN Creatinine Ratio 13.4 (10-20); Calcium 8.5 mg/dl (8.6-10.3); Creatinine Clr Calc Pharmacy 13.2 ml/min; Est GFR (African American) 12.6 ml/min; Est GFR (Non-African American) 10.9 ml/min; Potassium 4.8 mmol/L (3.5-5.1)
[2023-03-23] MEDS: INSULIN ASPART PER UNIT CHARGE SC SCH (21:43)
--- NOTE | 2023-03-23 22:21 | Fluoroscopy Report ---
INTRAOPERATIVE RADIOGRAPHS CLINICAL HISTORY: Left renal stent placement. Fluoro time: 5 seconds Ka,r: 1.36 mGy FINDINGS: 2 spot fluoroscopic views of the left abdomen are correlated with abdominal CT dated 2022. On the initial image a wire projects of the left ureter. The second image shows the proximal en d of a left ureteral stent in appropriate position. Fusion hardware is noted in the spine. IMPRESSION: Intraoperative images from a left ureteral stent placement procedure as above. Electronically signed by: Steven Feng M.D. 03/23/2023 10:20 PM
[2023-03-23] MEDS: SERTRALINE HCL 50 MG TABLET PO SCH (22:36)
[2023-03-23] MEDS: prednisoLONE acetate 1% OP SUSP 5 ML BTL OP SCH (22:38)
[2023-03-23] MEDS: SODIUM CHLORIDE 0.9% 1,000 ML IV SCH ×2 (22:38→23:10)
[2023-03-23] MEDS: SODIUM CHLORIDE 5% OP SOLN 15 ML BTL OPL SCH (22:38)
[2023-03-23] MEDS: PREGABALIN 100 MG CAP PO SCH (22:43)
[2023-03-23] MEDS: LANTUS PER UNIT CHARGE SQ SCH (22:43)
[2023-03-23] MEDS: ACETAMINOPHEN 325 MG TAB PO PRN (22:53)
[2023-03-23] MEDS: LORazepam 1 MG TAB PO PRN (23:09)
[2023-03-24 01:35] LABS: Calcium 8.3 mg/dl (8.6-10.3); Creatinine Clr Calc Pharmacy 15.2 ml/min; Potassium 4.5 mmol/L (3.5-5.1)
[2023-03-24] MEDS: LEVOTHYROXINE SODIUM 50 MCG TABLET PO SCH (06:25)
[2023-03-24 06:29] LABS: Basophils # (auto) 0.04 K/uL (0.00-0.20); Basophils % (auto) 0.6 %; Eosinophils # (auto) 0.26 K/uL (0.00-0.50); Eosinophils % (auto) 3.7 %; Hematocrit (blood only) 32.3 % (37.0-47.0); Hemoglobin 9.8 g/dl (12.0-16.0); Immature Granulocytes # (auto) 0.05 K/uL (0.01-0.20); Immature Granulocytes % (auto) 0.7 %; Lymphocytes # (auto) 1.48 K/uL (1.20-3.40); Lymphocytes % (auto) 21.1 %; Mean Corpuscular Hemoglobin 25.5 pg (25.0-34.0); Mean Corpuscular Hgb Conc 30.3 g/dL (32.0-36.0); Mean Corpuscular Volume 84.1 fL (80.0-100.0); Mean Platelet Volume 10.9 fL (9.4-12.4); Monocytes # (auto) 0.94 K/uL (0.11-0.59); Monocytes % (auto) 13.4 %; Neutrophils # (auto) 4.26 K/uL (1.40-6.50); Neutrophils % (auto) 60.5 %; Platelet Count 222 K/uL (130-400); RDW Coefficient of Variation 21.6 % (11.5-14.5); RDW Standard Deviation 66.4 fL (36.4-46.3); Red Blood Count 3.84 M/uL (4.20-5.40); White Blood Count 7.03 K/ul (4.8-10.8)
[2023-03-24 06:49] LABS: Anisocytosis Present; Polychromasia 1+
[2023-03-24 07:11] LABS: BUN Creatinine Ratio 13.5 (10-20); Calcium 8.3 mg/dl (8.6-10.3); Creatinine Clr Calc Pharmacy 16.8 ml/min; Est GFR (Non-African American) 14.7 ml/min; Potassium 4.5 mmol/L (3.5-5.1)
[2023-03-24 07:31] LABS: Estimated Average Glucose 151 mg/dl; Hemoglobin A1C 6.9 % (4.5-5.6)
[2023-03-24] MEDS: DONEPEZIL HCL 5 MG TAB PO SCH (07:45)
[2023-03-24] MEDS: THIAMINE HCL 50 MG TABLET PO SCH (07:45)
[2023-03-24] MEDS: DULoxetine HCL 60 MG CAP PO SCH (07:45)
[2023-03-24] MEDS: FERROUS SULFATE 325 MG TAB PO SCH (07:45)
[2023-03-24] MEDS: SERTRALINE HCL 50 MG TABLET PO SCH ×2 (07:46→21:01)
[2023-03-24] MEDS: PANTOprazole 40 MG TAB PO SCH (07:46)
[2023-03-24] MEDS: prednisoLONE acetate 1% OP SUSP 5 ML BTL OP SCH ×2 (07:47→21:02)
[2023-03-24] MEDS: PREGABALIN 100 MG CAP PO SCH ×2 (07:51→21:04)
--- NOTE | 2023-03-24 08:03 | Urology Progress Note ---
Date of Service March 24, 2023 Assessment & Plan (1) Left ureteral calculus: (2) Hydronephrosis: Plan 77yo/F who presented with left flank pain and was found to have an obstructing left ureteral stone and TEODORA. POD #1 s/p Cystoscopy, Left Retrograde, Left Stent Placement with Dr. Son. Tolerating the ureteral stent with minimal bother. Afebrile, hemodynamically stable. Labs reviewed WBC 7.03, hemoglobin 9.8, creatinine downtrending to 2.97 today. Urine culture pending. Juarez intact, draining w/hematuria. Continue to monitor. Can consider void trial prior to d/c if creatinine returns to normal. Continue supportive care. Continue to trend labs. Will arrange outpatient follow-up with our service for definitive stone management. Urology will follow peripherally. Please contact us with any further questions/concerns. Admission and Anticipated Discharge Date Admission Date: March 23, 2023 Subjective Patient examined at bedside this a.m. Awake, sitting up in bed on arrival. No acute distress. Reports left flank pain has improved. Tolerating the stent with minimal bother. Juarez draining with hematuria. Denies fevers, chills, nausea, vomiting Review of Systems Constitutional: as per Subjective / HPI Gastrointestinal: as per Subjective / HPI Genitourinary: as per Subjective / HPI Physical Exam Constitutional: no acute distress Respiratory: no respiratory distress and no labored breathing Skin: No visible rashes or lesions to exposed skin areas Neurologic: moves all extremities and awake Psychiatric: A+Ox3, euthymic affect Genitourinary: Juarez intact Results & Data Vital Signs (Past 12 Hours) Vital Signs Temp Pulse Pulse Pulse Resp BP BP 03/24/23 07:57 37.6 C H 78 17 139/61 03/24/23 07:11 75 03/24/23 03:55 36.6 C 59 L 16 151/74 H 03/23/23 23:27 36.9 C 68 18 155/62 H 03/23/23 22:57 70 03/23/23 22:56 36.7 C 69 18 170/60 H 03/23/23 21:06 74 03/23/23 20:30 03/23/23 20:30 36.6 C 67 16 159/63 H 03/23/23 20:30 36.6 C 67 16 159/63 H Pulse Ox O2 Del Method 03/24/23 07:57 91 Room Air 03/24/23 07:11 03/24/23 03:55 95 Room Air 03/23/23 23:27 94 Room Air 03/23/23 22:57 03/23/23 22:56 92 Room Air 03/23/23 21:06 03/23/23 20:30 Room Air 03/23/23 20:30 92 Room Air 03/23/23 20:30 92 Room Air PG Care Time/CCT Total # of Minutes Spent Total Time Spent with Patient: Total time spent is greater than 50% in coordination of care (as documented) at patient's floor/unit and/or counseling patient: Coding Level of Care Code 72279 SUB INP/OBS CARE 2/35MIN Diagnoses Left ureteral calculus N20.1 Hydronephrosis N13.30
[2023-03-24] MEDS: INSULIN ASPART PER UNIT CHARGE SC SCH ×4 (09:05→20:56)
[2023-03-24] MEDS: SODIUM CHLORIDE 0.45 % 1,000 ML IV SCH ×2 (10:55→23:10)
--- NOTE | 2023-03-24 15:29 | Hospitalist Progress Note ---
Date of Service March 24, 2023 Assessment & Plan (1) Left ureteral calculus: Plan: Postoperative day #1 after cystoscopy and left stent placement. Urology consult and recommendations appreciated. Juarez catheter is now in place with gross hematuria. Hopefully this will resolve quickly. Will remove Juarez catheter tomorrow with trial of voiding before discharge. (2) Left renal mass: Plan: This will need continued CT scan follow-up as an outpatient (3) Diabetes mellitus, type 2: Plan: ADA diet. Sliding scale coverage. Continue current medical management (4) NPH (normal pressure hydrocephalus): Plan: Stable. Supportive care. (5) Hypothyroid: Plan: Stable. Continue current thyroid replacement Plan Anticipate discharge to home possibly tomorrow, March 25 Admission and Anticipated Discharge Date Admission Date: March 23, 2023 Subjective Alert and oriented. No distress. Postoperative day #1 after cystoscopy and left ureter stent placement. Juarez catheter contains hematuria. Hemoglobin is stable. Hopefully this will resolve quickly. Left renal mass will need CT scan follow-up in 6 months as an outpatient. Creatinine has improved to 2.9 with IV fluids. Sodium and chloride however have increased. IV fluids adjusted. Will discontinue Juarez catheter in the morning with trial of voiding before hopeful discharge. Review of Systems 2 Review of Systems: Constitutional-no fever or chills ENT-no blurred vision, no double vision, no epistaxis, no sore throat Respiratory-no cough, no wheezing, no shortness of breath Cardiac-no palpitations, no chest pain, no syncope GI-no nausea, vomiting, diarrhea, melena, hematochezia -Juarez catheter in place with hematuria Musculoskeletal-no joint pain, no muscle tenderness Skin-no bruising, no rashes, no pruritus Neuro-no isolated weakness, no paresthesia, no weakness Psych-no depression, no anxiety Physical Exam 2 Physical Exam: General-alert and oriented x3, no fevers, no chills HEENT-head atraumatic and normocephalic, pupils equal and reactive to light, extraocular muscles intact Neck-no lymphadenopathy or thyromegaly, trachea midline Chest-clear to auscultation percussion. No rales wheezing or rhonchi Cardiac-regular rate and rhythm, normal S1 and S2 Abdomen-normal bowel sounds, nontender, no hepatosplenomegaly GUFoley catheter in place with gross hematuria Extremities-no cyanosis, clubbing, or edema Neuro-cranial nerves II through XII intact, motor and sensory function within normal limits, strength symmetrical, no focal deficits Psych-normal affect, normal mood Results & Data Results & Data Vital Signs (Past 12 Hours) Vital Signs Temp Pulse Pulse Pulse Resp BP Pulse Ox 03/24/23 15:17 72 03/24/23 11:38 36.8 C 65 18 116/45 L 93 03/24/23 07:57 37.6 C H 78 17 139/61 91 03/24/23 07:11 75 03/24/23 03:55 36.6 C 59 L 16 151/74 H 95 O2 Del Method 03/24/23 15:17 03/24/23 11:38 Room Air 03/24/23 07:57 Room Air 03/24/23 07:11 03/24/23 03:55 Room Air Laboratory Results 03/24/23 05:47 03/24/23 05:47 PG Care Time/CCT Total # of Minutes Spent Total Time Spent with Patient: Total time spent is greater than 50% in coordination of care (as documented) at patient's floor/unit and/or counseling patient: Coding Level of Care Code 74258 SUB INP/OBS CARE 3/50MIN Diagnoses Left ureteral calculus N20.1 Left renal mass N28.89 Diabetes mellitus, type 2 E11.9 NPH (normal pressure hydrocephalus) G91.2 Hypothyroid E03.9
[2023-03-24] MEDS: LORazepam 1 MG TAB PO PRN (20:59)
[2023-03-24] MEDS: ACETAMINOPHEN 325 MG TAB PO PRN (20:59)
[2023-03-24] MEDS: LANTUS PER UNIT CHARGE SQ SCH (21:01)
[2023-03-24] MEDS: SODIUM CHLORIDE 5% OP SOLN 15 ML BTL OPL SCH (21:02)
[2023-03-25] MEDS: LEVOTHYROXINE SODIUM 50 MCG TABLET PO SCH (06:05)
[2023-03-25 06:30] LABS: Basophils # (auto) 0.04 K/uL (0.00-0.20); Basophils % (auto) 0.6 %; Eosinophils # (auto) 0.28 K/uL (0.00-0.50); Eosinophils % (auto) 4.4 %; Hematocrit (blood only) 31.4 % (37.0-47.0); Hemoglobin 9.8 g/dl (12.0-16.0); Immature Granulocytes # (auto) 0.07 K/uL (0.01-0.20); Immature Granulocytes % (auto) 1.1 %; Lymphocytes # (auto) 1.56 K/uL (1.20-3.40); Lymphocytes % (auto) 24.5 %; Mean Corpuscular Hemoglobin 25.9 pg (25.0-34.0); Mean Corpuscular Hgb Conc 31.2 g/dL (32.0-36.0); Mean Corpuscular Volume 83.1 fL (80.0-100.0); Mean Platelet Volume 10.8 fL (9.4-12.4); Monocytes # (auto) 0.94 K/uL (0.11-0.59); Monocytes % (auto) 14.7 %; Neutrophils # (auto) 3.49 K/uL (1.40-6.50); Neutrophils % (auto) 54.7 %; Platelet Count 221 K/uL (130-400); RDW Standard Deviation 63.1 fL (36.4-46.3); Red Blood Count 3.78 M/uL (4.20-5.40); White Blood Count 6.38 K/ul (4.8-10.8)
[2023-03-25 06:48] LABS: BUN Creatinine Ratio 16.3 (10-20); Calcium 8.3 mg/dl (8.6-10.3); Creatinine Clr Calc Pharmacy 25.6 ml/min; Est GFR (African American) 28.1 ml/min; Est GFR (Non-African American) 24.2 ml/min; Potassium 4.4 mmol/L (3.5-5.1)
[2023-03-25 06:54] LABS: Anisocytosis Present; Polychromasia 1+
[2023-03-25 07:54] VITALS: O2SAT 93
[2023-03-25] MEDS: prednisoLONE acetate 1% OP SUSP 5 ML BTL OP SCH (08:25)
[2023-03-25] MEDS: FERROUS SULFATE 325 MG TAB PO SCH (08:26)
[2023-03-25] MEDS: PREGABALIN 100 MG CAP PO SCH (08:26)
[2023-03-25] MEDS: SERTRALINE HCL 50 MG TABLET PO SCH (08:26)
[2023-03-25] MEDS: PANTOprazole 40 MG TAB PO SCH (08:26)
[2023-03-25] MEDS: THIAMINE HCL 50 MG TABLET PO SCH (08:26)
[2023-03-25] MEDS: DULoxetine HCL 60 MG CAP PO SCH (08:26)
[2023-03-25] MEDS: DONEPEZIL HCL 5 MG TAB PO SCH (08:26)
[2023-03-25] MEDS: INSULIN ASPART PER UNIT CHARGE SC SCH ×2 (08:52→12:58)
[2023-03-25 11:27] VITALS: RESP 19; TEMP 97.5
--- NOTE | 2023-03-25 12:08 | Urology Progress Note ---
Date of Service March 25, 2023 Assessment & Plan (1) Left ureteral calculus: (2) Hydronephrosis: Plan 77yo/F who presented with left flank pain and was found to have an obstructing left ureteral stone and TEODORA. POD #2 s/p Cystoscopy, Left Retrograde, Left Stent Placement with Dr. Son. Tolerating the ureteral stent with minimal bother. Afebrile, hemodynamically stable. Labs reviewed WBC 6.38, hemoglobin 9.8, creatinine downtrending 1.96 today. Urine culture 03/23 negative. Juarez intact, draining light pink urine. Some hematuria can be expected with a stent in place, continue to monitor. Can consider void trial prior to d/c if renal function returns to normal. Continue supportive care. Continue to trend labs. Will arrange outpatient follow-up with our service for definitive stone management. Urology will follow peripherally. Please contact us with any further questions/concerns. Admission and Anticipated Discharge Date Admission Date: March 23, 2023 Subjective Patient examined at bedside this AM. Awake, sitting up in bed on arrival. No acute distress. Overall feeling well. Denies significant pain. Tolerating the stent with minimal bother. Juarez draining with light pink urine. Denies fevers, chills, nausea, vomiting Review of Systems Constitutional: as per Subjective / HPI Gastrointestinal: as per Subjective / HPI Genitourinary: as per Subjective / HPI Physical Exam Constitutional: well developed and well nourished; no acute distress Neck: normal visual inspection Respiratory: normal respiratory effort; no respiratory distress and no labored breathing Musculoskeletal: Head/Neck/Chest: normocephalic Neurologic: moves all extremities and awake Psychiatric: A+Ox3, euthymic affect Genitourinary: Juarez intact Results & Data Vital Signs (Past 12 Hours) Vital Signs Temp Pulse Pulse Resp BP Pulse Ox O2 Del Method 03/25/23 11:47 164/65 H 03/25/23 11:26 36.4 C L 70 19 172/95 H 93 Room Air 03/25/23 07:53 37.2 C 60 18 143/61 H 93 Room Air 03/25/23 07:51 Room Air 03/25/23 06:00 70 03/25/23 03:53 36.8 C 78 18 182/75 H 92 Room Air PG Care Time/CCT Total # of Minutes Spent Total Time Spent with Patient: Total time spent is greater than 50% in coordination of care (as documented) at patient's floor/unit and/or counseling patient: Coding Level of Care Code 93010 SUB INP/OBS CARE 235MIN Diagnoses Left ureteral calculus N20.1 Hydronephrosis N13.30
[2023-03-25] MEDS: SODIUM CHLORIDE 0.45 % 1,000 ML IV SCH (12:14)
--- NOTE | 2023-03-25 13:19 | Discharge Summary ---
Date of Service March 25, 2023 Admission HPI Per Admitting Provider Oliva Chowdary is a 77 year-old female with a past medical history of lacunar CVA, DM 2, hypertension, hypothyroidism, rheumatoid arthritis, normal pressure hydrocephalus (s/p shunt placement) who presented to the ED for worsening left sided flank pain. She notes that discomfort started last Thursday, and has been intermittent. On she went 24 hours without passing any urine, she states she would sit on the toilet and strain but was unable to pass any urine. She has been able to urinate since then but has had some dysuria, denies any change in color of her urine. Patient notes that she recently saw urology over the summer for microscopic hematuria and urinary hesitancy, had a cystoscopy and CT A/P in the same time frame which identified some smaller renal stones. However she has never had known stones prior to that imaging. Principal Diagnosis Left ureteral calculus and colic, left hydronephrosis, acute kidney injury, gross hematuria postoperatively Discharge Exam General-alert and oriented x3, no fevers, no chills HEENT-head atraumatic and normocephalic, pupils equal and reactive to light, ext raocular muscles intact Neck-no lymphadenopathy or thyromegaly, trachea midline Chest-clear to auscultation percussion. No rales wheezing or rhonchi Cardiac-regular rate and rhythm, normal S1 and S2 Abdomen-normal bowel sounds, nontender, no hepatosplenomegaly GUFoley catheter has been removed Extremities-no cyanosis, clubbing, or edema Neuro-cranial nerves II through XII intact, motor and sensory function within normal limits, strength symmetrical, no focal deficits Psych-normal affect, normal mood Discharge Data Allergies Allergy/AdvReac Type Severity Reaction Status Date / Time cetirizine Allergy Intermediate RASH AND Verified 02/05/23 16:18 ITCH fexofenadine Allergy Intermediate ALLLEGRA Verified 02/05/23 16:18 AND ZYRTEC RASH AND ITCH loratadine Allergy Intermediate RASH Verified 02/05/23 16:18 Penicillins Allergy Intermediate RASH Verified 02/05/23 16:18 glimepiride AdvReac Intermediate high blood Verified 02/05/23 16:18 sugars pioglitazone AdvReac Intermediate Palpitation Verified 02/05/23 16:18 s simvastatin AdvReac Intermediate MYALGIA Verified 02/05/23 16:18 doxycycline AdvReac Mild Gastrointestinal Verified 02/05/23 16:18 Upset gabapentin AdvReac Mild Anxiety Verified 02/05/23 16:18 lisinopril AdvReac Mild dehydration Verified 02/05/23 16:18 Consultations 03/23/23 14:45 Consult Urology Routine ED Decision to Admit Stat Procedures Performed Operation Date: 03/23/23 14:55 Actual Procedures p Cystoscopy Left Retrograde, Left Stent Placement(Left) - Shahzad Son MD Ordered Studies 03/23/23 13:29 CT abd pelvis wo con Stat 03/23/23 18:00 FL retrograde includes kub Routine Hospital Course (1) Left ureteral calculus: Postoperative day #2 after cystoscopy and left stent placement. Urology consult and recommendations appreciated. Juarez catheter was removed earlier this morning, March 25, and the patient is able to void spontaneously without it. Hematuria has nearly totally resolved. Urology entry noted (2) TEODORA (acute kidney injury): Creatinine has improved to 1.9 with IV fluids. This will eventually return to baseline. (3) Left renal mass: This will need continued CT scan follow-up as an outpatient (4) Diabetes mellitus, type 2: ADA diet. Sliding scale coverage. Continue current medical management (5) NPH (normal pressure hydrocephalus): Stable. Supportive care. (6) Hypothyroid: Stable. Continue current thyroid replacement Plan Home today, March 25. Follow-up with urology as an outpatient for definitive stone management Total Time Total Time Spent Total Time Spent (In Minutes): 45-minute Discharge Plan Discharge Items Patient Disposition: Home - Self-Care Reason For Visit: RENAL STONE Discharge Diagnosis: Left ureter calculus and colic, left hydronephrosis, acute kidney injury, gross hematuria postoperatively Activity: Resume your previous activity Non-emergency contact: Primary Care Provider and Urologist Call non-emergency contact if: your symptoms worsen Follow-up/Referrals: Benita Bergeron CRNP [Primary Care Provider] - Diet: Carb Consistent or DM2 Addtl Attending Provider Instructions: Follow-up with urology as directed for definitive left ureter stone management and eventual removal of left ureter stent Pending Studies at Discharge: No Stand-Alone Forms: My [employer], Smoking Cessation Medications and DC Order Prescriptions: Continued cholecalciferol (vitamin D3) [Vitamin D3] 2,000 unit capsule 4,000 units PO DAILY Qty: 30 0RF Patient Comments: pt takes in the am (DME) blood-glucose meter [OneTouch Ultra2 Meter] [facility] [place] See Rx Instructions .Route Qty: 1 0RF Rx Instructions: TEST BID; DX CODE- E11.9 ipratropium bromide 21 mcg (0.03 %) spray,non-aerosol 2 spray intranasal BID Qty: 90 2RF Rx Instructions: administer into each nostril donepezil 5 mg tablet 5 mg PO DAILY Qty: 90 1RF lorazepam 1 mg tablet 1 mg PO BID PRN (Reason: anxiety) Qty: 60 1RF spironolactone 25 mg tablet See Rx Instructions .ROUTE .COMPLEX Qty: 90 1RF Dose Instruction: TAKE 1 TABLET BY MOUTH DAILY Rx Instructions: TAKE 1 TABLET BY MOUTH DAILY losartan 100 mg tablet 100 mg PO DAILY Qty: 90 0RF levothyroxine 50 mcg tablet See Rx Instructions .ROUTE .COMPLEX Qty: 90 1RF Dose Instruction: TAKE 1 TABLET BY MOUTH EVERY DAY Rx Instructions: TAKE 1 TABLET BY MOUTH EVERY DAY insulin glargine [Basaglar KwikPen U-100 Insulin] 100 unit/mL (3 mL) insulin pen 55 unit SQ PM Qty: 55 1RF pantoprazole 40 mg tablet,delayed release (DR/EC) See Rx Instructions .ROUTE .COMPLEX Qty: 90 1RF Dose Instruction: TAKE 1 TABLET BY MOUTH EVERY DAY Rx Instructions: TAKE 1 TABLET BY MOUTH EVERY DAY ferrous sulfate 325 mg (65 mg iron) tablet 325 mg PO DAILY Qty: 90 3RF pregabalin 100 mg capsule 100 mg PO BID 90 Days Qty: 180 1RF duloxetine 60 mg capsule, delayed rel sprinkle 60 mg PO DAILY Qty: 90 3RF simethicone [Gas-X Ultra-Strength] 180 mg capsule 180 mg PO DAILY PRN (Reason: abdominal distention) Qty: 30 0RF (DME) lancets [OneTouch Delica Lancets] 33 gauge [facility] [place] See Dose Instructions .ROUTE .MEDSUPPLY Qty: 100 0RF Dose Instruction: As directed Rx Instructions: TEST ONCE A DAY (DME) OneTouch Ultra Blue Test Strip strip See Dose Instructions .ROUTE .MEDSUPPLY Qty: 10 0RF Dose Instruction: As directed Rx Instructions: MONITOR GLUCOSE ONCE DAILY Saccharomyces boulardii [Daily Probiotic (S. boulardii)] 250 mg capsule 10,000 mmu cells PO DAILY sertraline 50 mg tablet 25 mg PO BID prednisolone acetate 1 % drops,suspension 1 drp ophthalmic (eye) BID fish,bora,flax oils-om3,6,9no1 [[place] 3-6-9 Complex] 2 gummy PO DAILY thiamine HCl (vitamin B1) 50 mg tablet 25 mg PO DAILY metformin 500 mg tablet extended release 24hr 750 mg PO BID docusate sodium [Colace] 100 mg capsule 100 mg PO DAILY PRN (Reason: Constipation) acetaminophen 325 mg capsule 325 mg PO QID PRN (Reason: Pain) lidocaine [Aspercreme (lidocaine)] 4 % adhesive patch,medicated 1 patch topical DAILY PRN (Reason: Pain) ascorbic acid (vitamin C) 100 mg tablet 100 mg PO DAILY cyanocobalamin (vitamin B-12) [Vitamin B-12] 1,000 mcg Tablet 1,000 mcg PO QAM aspirin 81 mg tablet,delayed release (DR/EC) 81 mg PO QAM Reji 128 2 % drops 1 drp OPL HS Rx Instructions: 1 DROP IN LEFT EYE AT HS ophthalmic (eye) DAILY; Discharge Orders: Discharge Order (Routine); Ordered 03/25/23 Ordered By: Epifanio Freed/Other Patient Handouts: Managing Type 2 Diabetes Admission Data Admit Date/Time: 03/23/23 16:37 Attending Provider: Epifanio Tamez Admit Provider: Jackelin Castillo Primary Care Provider: Benita Bergeron Other Providers: Yony Delacruz; Shahzad Son Coding Level of Care Code 99964 INP/OBS DISCH >30 MIN Diagnoses Left ureteral calculus N20.1 TEODORA (acute kidney injury) N17.9 Left renal mass N28.89 Diabetes mellitus, type 2 E11.9 NPH (normal pressure hydrocephalus) G91.2 Hypothyroid E03.9
[2023-03-25 13:43] VITALS: BP 170/67; PULSE 59
== END 2023-03-25 14:08 | disposition home or self-care (01) | DRG 660 ==
LOC: ED 12:12 → SUATTDRO 16:37 → 2N 16:37
DX: Z86.73 Personal history of transient ischemic attack (TIA), and cerebral infarction without residual deficits; N18.9 Chronic kidney disease, unspecified; H90.5 Unspecified sensorineural hearing loss; Z88.1 Allergy status to other antibiotic agents; G91.2 (Idiopathic) normal pressure hydrocephalus; E11.9 Type 2 diabetes mellitus without complications; F32.A Depression, unspecified; Z79.890 Hormone replacement therapy; N17.9 Acute kidney failure, unspecified; Z79.4 Long term (current) use of insulin; M19.90 Unspecified osteoarthritis, unspecified site; Z88.8 Allergy status to other drugs, medicaments and biological substances; R31.0 Gross hematuria; I12.9 Hypertensive chronic kidney disease with stage 1 through stage 4 chronic kidney disease, or unspecified chronic kidney disease; K21.9 Gastro-esophageal reflux disease without esophagitis; Z96.653 Presence of artificial knee joint, bilateral; F41.9 Anxiety disorder, unspecified; Z79.82 Long term (current) use of aspirin; N13.2 Hydronephrosis with renal and ureteral calculous obstruction; Z96.642 Presence of left artificial hip joint; E03.9 Hypothyroidism, unspecified

== ENCOUNTER 2023-07-27 08:30 | Observation (INO) ==
--- NOTE | 2023-07-08 16:17 | PAT Medication Instructions ---
Medication Instructions Date of Service July 08, 2023 Home Medications Medication Instructions Recorded blood sugar diagnostic (OneTouch #10 ea 09/29/18 Ultra Blue Test Strip) lancets 33 gauge (OneTouch Delica #100 ea 09/29/18 Lancets) simethicone 180 mg capsule (Gas-X 180 mg PO DAILY PRN abdominal 09/29/18 Ultra-Strength) distention #30 caps blood-glucose meter (OneTouch #1 ea 04/12/21 Ultra2 Meter) ipratropium bromide 21 mcg (0.03 2 spray intranasal BID #90 mL 05/29/23 %) nasal spray lorazepam 0.5 mg tablet 0.5 mg PO DAILY PRN anxiety #30 06/23/23 tabs celecoxib 100 mg capsule (Celebrex) 100 mg PO BID #60 caps 07/06/23 aspirin 81 mg tablet,delayed release 81 mg PO QAM cyanocobalamin (vitamin B-12) 1,000 mcg tablet (Vitamin B-12) 1,000 mcg PO QAM simethicone 180 mg capsule (Gas-X Ultra-Strength) 180 mg PO DAILY PRN acetaminophen 325 mg capsule 325 mg PO QID PRN ascorbic acid (vitamin C) 100 mg tablet 100 mg PO QAM docusate sodium 100 mg capsule (Colace) 100 mg PO DAILY PRN lidocaine 4 % topical patch (Aspercreme (lidocaine)) 1 patch topical DAILY PRN Saccharomyces boulardii 250 mg capsule (Daily Probiotic (S. boulardii)) 10,000 mmu cells PO QAM fish,bora,flax oils-om3,6,9no1 [[place] 3-6-9 Complex] 2 gummy PO DAILY prednisolone acetate 1 % eye drops,suspension 1 drp ophthalmic (eye) QAM sertraline 50 mg tablet 25 mg PO BID donepezil 5 mg tablet (Aricept) 5 mg PO QAM ipratropium bromide 21 mcg (0.03 %) nasal spray 2 spray intranasal BID Hair Thickening Supplement - [place] Brand 1 cap PO DAILY dapagliflozin propanediol 5 mg tablet (Farxiga) 5 mg PO QAM lorazepam 0.5 mg tablet 0.5 mg PO DAILY PRN pregabalin 100 mg capsule 100 mg PO BID cholecalciferol (vitamin D3) 50 mcg (2,000 unit) capsule (Vitamin D3) 4,000 units PO QAM evolocumab 140 mg/mL subcutaneous pen injector (Repatha SureClick) 140 mg subcut Q14D fenofibrate nanocrystallized 145 mg tablet 145 mg PO QAM ferrous sulfate 325 mg (65 mg iron) tablet 325 mg PO QAM insulin glargine 100 unit/mL (3 mL) subcutaneous pen (Basaglar KwikPen U-100 Insulin) 55 unit subcut HS levothyroxine 50 mcg tablet 50 mcg PO QAM losartan 100 mg tablet 100 mg PO QAM thiamine HCl (vitamin B1) 25 mg tablet 25 mg PO QAM celecoxib 100 mg capsule (Celebrex) 100 mg PO BID pantoprazole 40 mg tablet,delayed release mg PO STOP 3 days before surgery dapagliflozin propanediol 5 mg tablet (Farxiga) 5 mg PO QAM Continue as directed pantoprazole 40 mg tablet,delayed release mg PO lorazepam 0.5 mg tablet 0.5 mg PO DAILY PRN(if needed) ASK your surgeon for instructions celecoxib 100 mg capsule (Celebrex) 100 mg PO BID ASK your prescriber and surgeon aspirin 81 mg tablet,delayed release 81 mg PO QAM evolocumab 140 mg/mL subcutaneous pen injector (Repatha SureClick) 140 mg subcut Q14D STOP taking 2 weeks before surgery (or as soon as possible if surgery is within 2 weeks) fish,bora,flax oils-om3,6,9no1 [[place] 3-6-9 Complex] 2 gummy PO DAILY Hair Thickening Supplement - [employer] Brand 1 cap PO DAILY STOP taking 48 hours before surgery fenofibrate nanocrystallized 145 mg tablet 145 mg PO QAM STOP taking 24 hours before surgery lidocaine 4 % topical patch (Aspercreme (lidocaine)) 1 patch topical DAILY PRN DO NOT take the morning of surgery cyanocobalamin (vitamin B-12) 1,000 mcg tablet (Vitamin B-12) 1,000 mcg PO QAM simethicone 180 mg capsule (Gas-X Ultra-Strength) 180 mg PO DAILY PRN ascorbic acid (vitamin C) 100 mg tablet 100 mg PO QAM docusate sodium 100 mg capsule (Colace) 100 mg PO DAILY PRN Saccharomyces boulardii 250 mg capsule (Daily Probiotic (S. boulardii)) 10,000 mmu cells PO QAM donepezil 5 mg tablet (Aricept) 5 mg PO QAM cholecalciferol (vitamin D3) 50 mcg (2,000 unit) capsule (Vitamin D3) 4,000 units PO QAM ferrous sulfate 325 mg (65 mg iron) tablet 325 mg PO QAM losartan 100 mg tablet 100 mg PO QAM thiamine HCl (vitamin B1) 25 mg tablet 25 mg PO QAM Take morning of surgery With a small sip of water, OTHERWISE NOTHING TO EAT OR DRINK AFTER MIDNIGHT: acetaminophen 325 mg capsule 325 mg PO QID PRN(if needed) prednisolone acetate 1 % eye drops,suspension 1 drp ophthalmic (eye) QAM sertraline 50 mg tablet 25 mg PO BID ipratropium bromide 21 mcg (0.03 %) nasal spray 2 spray intranasal BID pregabalin 100 mg capsule 100 mg PO BID levothyroxine 50 mcg tablet 50 mcg PO QAM Take evening before surgery acetaminophen 325 mg capsule 325 mg PO QID PRN(if needed) sertraline 50 mg tablet 25 mg PO BID ipratropium bromide 21 mcg (0.03 %) nasal spray 2 spray intranasal BID pregabalin 100 mg capsule 100 mg PO BID insulin glargine 100 unit/mL (3 mL) subcutaneous pen (Basaglar KwikPen U-100 Insulin) 55 unit subcut HS Other Notes If you have any questions please call us at [phone] or [phone] or [phone] or [phone]
--- NOTE | 2023-07-13 12:52 | Anesthesiology Consultation ---
Date of Service July 13, 2023 Assessment & Plan (1) Encounter for pre-operative examination: - workload note sent to [place] PCP regarding continued creatinine increase. Awaiting response. - awaiting dobutamine stress echo and cardiology clearance. Workload note sent. Surgeon's office made aware. - check BSG am DOS. - anesthesia reaction: patient reports several days of post-op confusion attempting to leave her house after surgery for shunt placement. She plans to discuss if she and family feel she should have inpatient rehab after surgery with surgeon's office. I also notified surgeon's office. - Case discussed in detail with Dr. Hargrove who agreed with PCP clearance and advised nothing additional is needed from his standpoint. - cardiology office visit 06/08/23 [place]: "...Exertional dyspnea: Will arrange a dobutamine stress echo to further evaluate for myocardial ischemia. She does not appear hypervolemic on exam..." Chart Review Chart Review: Pending: Refer to Additional Notes / Consult section and Patient seen in Pre Admission Testing Teaching & Discussion Pre-Anesthesia Teaching/Discussion Notes: Instructed NPO after midnight before surgery, except medications with 15 cc of water. Medication instructions provided according to the PAT guidelines. History Surgery Operation Date: 07/27/23 10:00 Proposed Procedures p C4-C5 Anterior Cervical Discectomy with Fusion, Anterior Instrumentation and Insertion of Interbody Device - Errol Ferrell MD Height/Weight Height: 5 ft 3 in Weight: 87.8 kg Allergies Allergy/AdvReac Type Severity Reaction Status Date / Time cetirizine Allergy Intermediate Rash, itch Verified 07/06/23 13:19 fexofenadine Allergy Intermediate Rash, itch Verified 07/06/23 13:19 (Bertha, Zyrtec) loratadine Allergy Intermediate Rash Verified 07/06/23 13:19 Penicillins Allergy Intermediate Rash Verified 07/06/23 13:19 glimepiride AdvReac Intermediate High blood Verified 07/06/23 13:19 sugars pioglitazone AdvReac Intermediate Palpitation Verified 07/06/23 13:19 s simvastatin AdvReac Intermediate Myalgia Verified 07/06/23 13:19 doxycycline AdvReac Mild Gastrointestinal Verified 07/06/23 13:19 Upset gabapentin AdvReac Mild Anxiety Verified 07/06/23 13:19 lisinopril AdvReac Mild Dehydration Verified 07/06/23 13:19 Medications Home Medications Medication Instructions Recorded Confirmed Last Taken aspirin 81 mg tablet,delayed 81 mg PO QAM 07/22/18 07/06/23 04/27/23 09:00 release cyanocobalamin (vitamin B-12) 1,000 mcg PO QAM 07/22/18 07/06/23 04/27/23 09:00 1,000 mcg tablet (Vitamin B-12) blood sugar diagnostic (OneTouch #10 ea 09/29/18 07/06/23 Unknown Ultra Blue Test Strip) lancets 33 gauge (OneTouch Delica #100 ea 09/29/18 07/06/23 Unknown Lancets) simethicone 180 mg capsule (Gas-X 180 mg PO DAILY PRN abdominal 09/29/18 07/06/23 04/27/23 15:00 Ultra-Strength) distention #30 caps acetaminophen 325 mg capsule 325 mg PO QID PRN Pain 11/20/20 07/06/23 04/27/23 09:00 ascorbic acid (vitamin C) 100 mg 100 mg PO QAM 11/20/20 07/06/23 04/27/23 09:00 tablet docusate sodium 100 mg capsule 100 mg PO DAILY PRN Constipation 11/20/20 07/06/23 2 Months Ago (Colace) ~02/26/23 lidocaine 4 % topical patch 1 patch topical DAILY PRN Pain 11/20/20 07/06/23 Unknown (Aspercreme (lidocaine)) blood-glucose meter (OneTouch #1 ea 04/12/21 07/06/23 Unknown Ultra2 Meter) Saccharomyces boulardii 250 mg 10,000 mmu cells PO QAM 12/11/21 07/06/23 04/27/23 09:00 capsule (Daily Probiotic (S. boulardii)) fish,bora,flax oils-om3,6,9no1 2 gummy PO DAILY 01/08/22 07/06/23 04/27/23 09:00 [[employer] 3-6-9 Complex] prednisolone acetate 1 % eye 1 drp ophthalmic (eye) QA 01/08/22 07/06/23 04/27/23 09:00 drops,suspension sertraline 50 mg tablet 25 mg PO BID 12/05/22 07/06/23 04/28/23 08:00 donepezil 5 mg tablet (Aricept) 5 mg PO QAM 04/28/23 07/06/23 04/26/23 ipratropium bromide 21 mcg (0.03 2 spray intranasal BID #90 mL 05/29/23 07/06/23 Unknown %) nasal spray Hair Thickening Supplement - 1 cap PO DAILY 06/10/23 07/06/23 Unknown [place] Brand dapagliflozin propanediol 5 mg 5 mg PO QAM 06/12/23 07/06/23 Unknown tablet (Farxiga) lorazepam 0.5 mg tablet 0.5 mg PO DAILY PRN anxiety #30 06/23/23 07/06/23 Unknown tabs pregabalin 100 mg capsule 100 mg PO BID 06/24/23 07/06/23 Unknown cholecalciferol (vitamin D3) 50 4,000 units PO QAM 07/03/23 07/06/23 Unknown mcg (2,000 unit) capsule (Vitamin D3) evolocumab 140 mg/mL subcutaneous 140 mg subcut Q14D 07/03/23 07/06/23 Unknown pen injector (Arturo Blake) fenofibrate nanocrystallized 145 145 mg PO QAM 07/03/23 07/06/23 Unknown mg tablet ferrous sulfate 325 mg (65 mg 325 mg PO QAM 07/03/23 07/06/23 Unknown iron) tablet insulin glargine 100 unit/mL (3 55 unit subcut HS 07/03/23 07/06/23 Unknown mL) subcutaneous pen (Basaglar KwikPen U-100 Insulin) levothyroxine 50 mcg tablet 50 mcg PO QAM 07/03/23 07/06/23 Unknown losartan 100 mg tablet 100 mg PO QAM 07/03/23 07/06/23 Unknown thiamine HCl (vitamin B1) 25 mg 25 mg PO QAM 07/03/23 07/06/23 Unknown tablet celecoxib 100 mg capsule (Celebrex) 100 mg PO BID #60 caps 07/06/23 07/06/23 Unknown pantoprazole 40 mg tablet,delayed mg PO 07/06/23 07/06/23 Unknown release Past Medical History Medical History (Updated 07/13/23 @ 13:12 by Shaina Stone PA-C) Chronic anemia Constipation chronic Depression Diabetes mellitus, type 2 IDDM Diabetic peripheral neuropathy hands and feet, ambulates with cane Essential hypertension variable per pt Fibromyalgia Fluid retention hands, ongoing since 2019 to chart review and pt-denies recent change or worsening GERD (gastroesophageal reflux disease) controlled, stable per pt History of anesthesia reaction several days of post-op confusion History of COVID-19 03/2022- resolved History of hydrocephalus Approximately 2019 Normal pressure hydrocephalus s/p [employer] shunt 2020 Hyperlipidemia Hypothyroid Kidney stones last kidney stone > 3 months ago Lacunar infarction 2015, no residual effects currently Lumbago Lumbar post-laminectomy syndrome Mild cognitive impairment NPH (normal pressure hydrocephalus) s/p [employer] shunt placed in 2020 Osteoarthritis Polymyalgia rheumatica Presence of cerebrospinal fluid drainage device Placed 2019 ([facility]) Follows w/[facility] neuro and Dr. Dover Sensorineural hearing loss (SNHL) of both ears Sleep apnea no device; had sx and 35lb weight loss at the time Stage 3b chronic kidney disease Temporomandibular joint disorder clicking, only locked once after procedure-but was easily resolved. Vertigo chronic with positional changes since shunt placement-denies change or worsening Patient denies h/o seizures, heart attack, heart failure, blood clots/DVTs or blood transfusions. Exercise / Class Metabolic Activity III < 4 Walking/Shop/Light housework (ambulates with cane, denies chest discomfort or shortness of breath with usual activities) Past Family History Family History Sister Breast cancer Family hx colonic polyps Hypertension Skin cancer Metastatic malignant neoplasm to breast Father Myocardial infarction Heart disease Sister Family hx colonic polyps Mother Skin cancer Lung cancer smoker Brother Lung cancer smoker Bladder cancer Heart disease Family/Other Adverse effect of anesthesia Other No family history of adverse response to anesthesia No family history of bleeding disorder Denies family history of Ovarian cancer Prostate cancer Colorectal cancer Past Surgical History Surgical History Fusion of spine Lumbar (x2 surgeries) H/O eye surgery Partial left retina replacement H/O oophorectomy H/O: hysterectomy History of arthroscopy R/L knee History of cataract surgery R/L History of colonoscopy History of endoscopic sinus surgery History of esophagogastroduodenoscopy (EGD) History of fusion of lumbar spine History of nasal septoplasty History of repair of rotator cuff Right History of tonsillectomy History of tooth extraction History of total hip arthroplasty Left History of total knee replacement R/L Hx of cystoscopy w/ stent 03/23/23 [facility]; s/p removal stent Past Anesthesia History No Family Hx of Anesthesia Complications and Other (post-op confusion lasting for several days) History of PONV No Hx of PONV and Hx of Motion Sickness Social History Smoking Status: Former smoker Do You Dip or Chew Tobacco: No Smoking End Date: 25 years ago-1 ppd smoker Hx Alcohol Use: Yes Alcohol type: beer, wine and hard liquor alcohol intake frequency: other Alcohol Intake Frequency Comment: maybe 1x per month Hx Substance Use: No substance use type: does not use Review of Systems Patient denies chest pain, shortness of breath, dyspnea on exertion, fever, chills, cough, wheezing, or palpitations. Physical Exam Vital Signs Vitals BP 137/79 P 55 TEMP 98 SP02 95% on RA RESP 18 Physical Patient resting comfortably in chair in no acute distress, alert and oriented, responding appropriately throughout visit Full cervical extension range of motion without pain TMD 3.5 finger breadths Mallampati Score 2 Dentition: one broken tooth left lower side, denies loose teeth, caps/crowns, implants or bridges Lungs: normal respiratory effort. Good air movement, clear throughout to auscultation, no adventitious breath sounds Cardiac: regular rate and rhythm, no murmurs noted Carotid arteries: negative bruit bilat Lab Results Anesthesia Preop Results Results Anesthesia Widget: WBC 5.37 K/ul (4.8-10.8) 06/29/23 Hgb 13.7 g/dl (12.0-16.0) 06/29/23 Hct 42.1 % (37.0-47.0) 06/29/23 Plt 206 K/uL (130-400) 06/29/23 Na 144 mmol/L (136-145) 07/13/23 K 4.5 mmol/L (3.5-5.1) 07/13/23 Cl 111 mmol/L (98-107) H 07/13/23 CO2 26 mmol/L (21-32) 07/13/23 BUN 28 mg/dl (6-23) H 07/13/23 Creat 2.03 mg/dl (0.6-1.2) H 07/13/23 Glucose Level 141 mg/dl (70-99(Fasting)) H 07/13/23 PT 11.2 Seconds (9.0-12.0) 07/13/23 PTT 33 Seconds (21-31) H 07/13/23 INR 1.0 (0.9-1.1) 07/13/23 TSH 2.510 uIu/ml (0.300-4.500) 06/04/23 HA1c 7.1 % (4.5-5.6) H 07/13/23 Urine Color Yellow 06/04/23 Urine Appearance Clear (Clear) 06/04/23 Urine pH 5.0 (4.5-7.5) 06/04/23 Urine Specific [place] 1.015 (1.000-1.030) 06/04/23 Urine Protein Negative (Negative) 06/04/23 Urine Glucose (UA) Negative (Negative) 06/04/23 Urine Ketones Negative (Negative) 06/04/23 Urine Blood Negative (Negative) 06/04/23 Urine Nitrite Negative (Negative) 06/04/23 Urine Bilirubin Negative (Negative) 06/04/23 Urine Urobilinogen Negative (Negative) 06/04/23 Urine Leukocyte Esterase Trace (Negative) H 06/04/23 Urine WBC (Auto) 1-5 /hpf (0-5) 06/04/23 Urine RBC (Auto) 0-4 /hpf (0-4) 06/04/23 Urine Hyaline Casts (Auto) 1-5 /lpf (0-5) 06/04/23 Urine Epithelial Cells (Auto) 5-10 /lpf (0-5) H 06/04/23 Urine Bacteria (Auto) Negative (Negative) 06/04/23 Blood Type O Positive 07/13/23 Antibody Screen NEGATIVE 07/13/23 Testing Electrocardiogram Date: 06/04/23 Sinus bradycardia with 1st degree AV block, rate 58 bpm Low voltage QRS Nonspecific T wave abnormality anteroseptal leads Chest X-Ray Date: 06/04/23 *1view* No acute cardiopulmonary findings. No significant change in appearance of the chest. Cervical Spine Date: 10/09/22 1. Discogenic degeneration with spondylotic spurring and facet arthrosis as above. 2. Moderate central canal stenosis at C4-C5 with mild adjacent signal abnormality within the cervical spinal cord suggestive of probable myelomalacia. 3. 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 4. Multilevel neural foraminal narrowing as above. Other Testing Head CT 06/04/23 1. No acute intracranial findings. 2. No change in position of a right frontal ventriculostomy catheter. Stable mild ventricular dilatation. No change in appearance of the brain. Head and neck MRA 09/15/22 1. Mild stenosis at the origin of the left internal carotid artery due to atherosclerosis. 2. No dissection or aneurysm within the neck.
[~2023-07-27 08:30] MED LIST changes: -CELE100C PO; -CHOL200010 PO; +DEXAMETHASONE SOD INJ 4 MG/ML VIAL ONE; -DOCU-94 PO; -DULO60CA44 PO; -FOLI1POW10 PO; +GLYCOPYRROLATE 0.2 MG/ML VIAL ONE; -HYDR0.5T PO; -HYDR25TA4 PO; -LEUC5TAB PO; +LIDOCAINE 2% 2 ML VIAL/AMP(20MG/ML) INFIL ONE; -LORA0.5T12 PO; -METF-383 PO; -METH2.5T PO; +MIDAZOLAM HCL 1 MG/ML 2ML VIAL ONE; -MONT1TAB3 PO; -OMEG10007 PO; -OMEP20TA14 PO; +ONDANSETRON INJ 2 MG/ML 2 ML VIAL ONE; -POLY1SOL6 OPB; -PRED1SUS3 OPL; +PROPOFOL IV EMULSION 10 MG/ML 20 ML VIAL IV ONE; +ROCURONIUM BROMIDE 10 MG/ML 5 ML VIAL IV ONE; -RXC5 PO; -SODI5SOL4 OPB; +fentaNYL citrate PF 100 MCG/2 ML VIAL ONE
[2023-07-27] MEDS ORDERED: ONDANSETRON INJ 2 MG/ML 2 ML VIAL IV PRN ×2 (09:25→13:32)
[2023-07-27] MEDS ORDERED: ePHEDrine sulfate 50 MG/ML AMP IV PRN (09:25)
[2023-07-27] MEDS ORDERED: ATROPINE SULFATE 0.1 MG/ML 10ML SYR IV PRN (09:25)
[2023-07-27] MEDS ORDERED: HYDROmorphone INJ 2 MG/ML SYR/VIAL IV PRN (09:25)
--- NOTE | 2023-07-27 09:27 | Anesthesiology Consultation ---
Date of Service July 27, 2023 Assessment & Plan Chart Review Chart Review: Acceptable Risk for Surgery Consults Requested none ASA ASA3 Proposed Anesthesia Anesthesia Type: General History Surgery Operation Date: 07/27/23 10:00 Proposed Procedures p C4-C5 Anterior Cervical Discectomy with Fusion, Anterior Instrumentation and Insertion of Interbody Device - Errol Ferrell MD Height/Weight Height: 5 ft 3 in Weight: 87.8 kg Allergies Allergy/AdvReac Type Severity Reaction Status Date / Time cetirizine Allergy Intermediate Rash, itch Verified 07/27/23 09:15 fexofenadine Allergy Intermediate Rash, itch Verified 07/27/23 09:15 (Bertha, Zyrtec) loratadine Allergy Intermediate Rash Verified 07/27/23 09:15 Penicillins Allergy Intermediate Rash Verified 07/27/23 09:15 glimepiride AdvReac Intermediate High blood Verified 07/27/23 09:15 sugars pioglitazone AdvReac Intermediate Palpitation Verified 07/27/23 09:15 s simvastatin AdvReac Intermediate Myalgia Verified 07/27/23 09:15 doxycycline AdvReac Mild Gastrointestinal Verified 07/27/23 09:15 Upset gabapentin AdvReac Mild Anxiety Verified 07/27/23 09:15 lisinopril AdvReac Mild Dehydration Verified 07/27/23 09:15 Medications Home Medications Medication Instructions Recorded Confirmed Last Taken aspirin 81 mg tablet,delayed 81 mg PO QAM 07/22/18 07/27/23 07/13/23 release cyanocobalamin (vitamin B-12) 1,000 mcg PO QAM 07/22/18 07/27/23 07/20/23 1,000 mcg tablet (Vitamin B-12) blood sugar diagnostic (OneTouch #10 ea 09/29/18 07/06/23 Unknown Ultra Blue Test Strip) lancets 33 gauge (OneTouch Delica #100 ea 09/29/18 07/06/23 Unknown Lancets) simethicone 180 mg capsule (Gas-X 180 mg PO DAILY PRN abdominal 09/29/18 07/27/23 07/26/23 15:00 Ultra-Strength) distention #30 caps acetaminophen 325 mg capsule 325 mg PO QID PRN Pain 11/20/20 07/27/23 07/26/23 21:00 ascorbic acid (vitamin C) 100 mg 100 mg PO QAM 11/20/20 07/27/23 07/26/23 15:00 tablet docusate sodium 100 mg capsule 100 mg PO DAILY PRN Constipation 11/20/20 07/27/23 06/26/23 (Colace) lidocaine 4 % topical patch 1 patch topical DAILY PRN Pain 11/20/20 07/27/23 Unknown (Aspercreme (lidocaine)) blood-glucose meter (OneTouch #1 ea 04/12/21 07/06/23 Unknown Ultra2 Meter) Saccharomyces boulardii 250 mg 10,000 mmu cells PO QAM 12/11/21 07/27/23 07/26/23 09:00 capsule (Daily Probiotic (S. boulardii)) fish,bora,flax oils-om3,6,9no1 2 gummy PO DAILY 01/08/22 07/27/23 07/13/23 [[place] 3-6-9 Complex] prednisolone acetate 1 % eye 1 drp ophthalmic (eye) QAM 01/08/22 07/27/23 07/26/23 21:00 drops,suspension sertraline 50 mg tablet 25 mg PO BID 12/05/22 07/27/23 07/27/23 07:30 donepezil 5 mg tablet (Aricept) 5 mg PO QAM 04/28/23 07/27/23 07/26/23 21:00 ipratropium bromide 21 mcg (0.03 2 spray intranasal BID #90 mL 05/29/23 07/27/23 06/25/23 %) nasal spray Hair Thickening Supplement - 1 cap PO DAILY 06/10/23 07/27/23 07/13/23 [facility] Brand dapagliflozin propanediol 5 mg 5 mg PO QAM 06/12/23 07/27/23 07/13/23 tablet (Farxiga) lorazepam 0.5 mg tablet 0.5 mg PO DAILY PRN anxiety #30 06/23/23 07/27/23 07/27/23 07:30 tabs pregabalin 100 mg capsule 100 mg PO BID 06/24/23 07/27/23 07/27/23 07:30 cholecalciferol (vitamin D3) 50 4,000 units PO QAM 07/03/23 07/27/23 07/26/23 09:00 mcg (2,000 unit) capsule (Vitamin D3) evolocumab 140 mg/mL subcutaneous 140 mg subcut Q14D 07/03/23 07/27/23 07/22/23 pen injector (Arturo Malagonick) fenofibrate nanocrystallized 145 145 mg PO QAM 07/03/23 07/27/23 07/24/23 mg tablet ferrous sulfate 325 mg (65 mg 325 mg PO QAM 07/03/23 07/27/23 07/26/23 15:00 iron) tablet insulin glargine 100 unit/mL (3 55 unit subcut HS 07/03/23 07/27/23 07/26/23 22:00 mL) subcutaneous pen (Basaglar KwikPen U-100 Insulin) levothyroxine 50 mcg tablet 50 mcg PO QAM 07/03/23 07/27/23 07/27/23 07:30 losartan 100 mg tablet 100 mg PO QAM 07/03/23 07/27/23 07/26/23 0730 thiamine HCl (vitamin B1) 25 mg 25 mg PO QAM 07/03/23 07/27/23 07/26/23 09:00 tablet celecoxib 100 mg capsule (Celebrex) 100 mg PO BID #60 caps 07/06/23 07/27/23 07/13/23 pantoprazole 40 mg tablet,delayed mg PO 07/06/23 07/06/23 07/26/23 21:00 release Active Medications Generic Name Dose Route Start Last Admin Trade Name Freq PRN Reason Stop Dose Admin Lactated Ringer's 1,000 mls @ 60 mls/hr 07/27/23 06:00 07/27/23 09:49 Lr IV 07/27/23 22:[id number] Sodium Chloride 1,000 mls @ 15 mls/hr 07/27/23 06:00 07/27/23 09:49 Nss IV 07/28/23 05:59 15 mls/hr .Q24H LANE Administration Past Medical History Medical History (Updated 07/27/23 @ 09:11 by Alexsandra Maciel RN) Vertigo chronic with positional changes since shunt placement-denies change or worsening History of anesthesia reaction several days of post-op confusion Lumbago Lumbar post-laminectomy syndrome Constipation chronic Stage 3b chronic kidney disease Chronic anemia Kidney stones last kidney stone june 2023 History of COVID-19 03/2022- resolved History of hydrocephalus Approximately 2019 Normal pressure hydrocephalus s/p [employer] shunt 2020 Presence of cerebrospinal fluid drainage device Placed 2019 ([facility] [place]) Follows w/[facility] neuro and Dr. Dover Sensorineural hearing loss (SNHL) of both ears Hypothyroid NPH (normal pressure hydrocephalus) s/p [employer] shunt placed in 2020 GERD (gastroesophageal reflux disease) controlled, stable per pt Mild cognitive impairment Lacunar infarction 2015, no residual effects currently Essential hypertension variable per pt Diabetic peripheral neuropathy hands and feet, ambulates with cane Polymyalgia rheumatica Osteoarthritis Fibromyalgia Diabetes mellitus, type 2 IDDM Temporomandibular joint disorder clicking, only locked once after procedure-but was easily resolved. Depression Hyperlipidemia Fluid retention hands, ongoing since 2018 to chart review and pt-denies recent change or worsening Sleep apnea no device; had sx and 35lb weight loss at the time Exercise / Class Metabolic Activity II 4-5 Yardwork/Stairs/Walk up hill Past Family History Family History Sister Breast cancer Family hx colonic polyps Hypertension Skin cancer Metastatic malignant neoplasm to breast Father Myocardial infarction Heart disease Sister Family hx colonic polyps Mother Skin cancer Lung cancer smoker Brother Lung cancer smoker Bladder cancer Heart disease Family/Other Adverse effect of anesthesia Other No family history of adverse response to anesthesia No family history of bleeding disorder Denies family history of Ovarian cancer Prostate cancer Colorectal cancer Past Surgical History Surgical History (Updated 07/27/23 @ 09:12 by Alexsandra Maciel RN) H/O lithotripsy History of fusion of lumbar spine Hx of cystoscopy w/ stent 03/23/23 [facility]; s/p removal stent History of esophagogastroduodenoscopy (EGD) H/O oophorectomy H/O: hysterectomy History of arthroscopy R/L knee History of repair of rotator cuff Right History of total hip arthroplasty Left History of total knee replacement R/L Fusion of spine Lumbar (x2 surgeries) History of colonoscopy History of tooth extraction History of endoscopic sinus surgery History of nasal septoplasty History of cataract surgery R/L History of tonsillectomy H/O eye surgery Partial left retina replacement Past Anesthesia History No Hx of Anesthesia Complications History of PONV No Hx of PONV Social History Smoking Status: Former smoker Do You Dip or Chew Tobacco: No Smoking End Date: 25 years ago-1 ppd smoker Hx Alcohol Use: Yes Alcohol type: beer, wine and hard liquor alcohol intake frequency: other Alcohol Intake Frequency Comment: maybe 1x per month Hx Substance Use: No substance use type: does not use Physical Exam Vital Signs Last Vital Signs Temp 36.9 C 07/27/23 09:29 Pulse 60 07/27/23 09:29 Resp 18 07/27/23 09:29 BP 157/54 H 07/27/23 09:29 Pulse Ox 96 07/27/23 09:29 O2 Del Method Room Air 07/27/23 09:29 Constitutional no acute distress ENMT Thyromental Distance: > or= 3.5 Finger Breadths Mallampati Class: II cracked bottom left premolar Neck normal visual inspection Respiratory normal respiratory effort; no respiratory distress Auscultation: lungs clear to auscultation bilaterally Cardiovascular Rate/Rhythm: regular rate and regular rhythm Heart Sounds: no murmur Psychiatric Orientation: alert and oriented x 3 Testing Laboratory Results 07/27/23 09:14 POC Glucose 90 Electrocardiogram Date: 06/04/23 Sinus bradycardia with 1st degree AV block, rate 58 bpm Low voltage QRS Nonspecific T wave abnormality anteroseptal leads Chest X-Ray Date: 06/04/23 *1view* No acute cardiopulmonary findings. No significant change in appearance of the chest. Stress Test Type: DSE Findings: + WNL Cervical Spine Date: 10/09/22 1. Discogenic degeneration with spondylotic spurring and facet arthrosis as above. 2. Moderate central canal stenosis at C4-C5 with mild adjacent signal abnormality within the cervical spinal cord suggestive of probable myelomalacia. 3. 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 4. Multilevel neural foraminal narrowing as above. Other Testing Head CT 06/04/23 1. No acute intracranial findings. 2. No change in position of a right frontal ventriculostomy catheter. Stable mild ventricular dilatation. No change in appearance of the brain. Head and neck MRA 09/15/22 1. Mild stenosis at the origin of the left internal carotid artery due to atherosclerosis. 2. No dissection or aneurysm within the neck.
[2023-07-27] MEDS ORDERED: SUGAMMADEX SODIUM 200 MG/2 ML VIAL IV ONE (09:33)
[2023-07-27] MEDS: SODIUM CHLORIDE 0.9% 1000ML IV SCH (09:49)
[2023-07-27] MEDS: LR 60ML/HR IV SCH (09:49)
--- NOTE | 2023-07-27 10:13 | History & Physical Bridge Note ---
Date of Service July 27, 2023 History & Physical Bridge Note I have examined the patient, reviewed the History & Physical and in the interval since the performance of the History & Physical I have noted the following changes of clinical significance: no changes noted
[2023-07-27] MEDS: ceFAZolin 2000MG 2,000 MG/15 ML SYR IV SCH (11:02)
[2023-07-27] MEDS ORDERED: fentaNYL citrate PF 100 MCG/2 ML VIAL ONE (11:33)
[2023-07-27] MEDS: FLOSEAL HEMOSTATIC MATRIX 5ML TOP ONE (13:00)
[2023-07-27] MEDS: VANCOMYCIN HCL 1000MG/20ML VIAL ONE (13:00)
[2023-07-27] MEDS: GELATIN SPONGE 12-7MM ONE (13:27)
[2023-07-27] MEDS: THROMBIN 5000 UNITS KIT ONE (13:27)
[2023-07-27] MEDS ORDERED: LORazepam 0.5 MG in SYRINGE 0.25 ML IV PRN (13:32)
[2023-07-27] MEDS ORDERED: RACEPINEPHRINE 2.25% NEBU SOLN 0.5 ML VIAL INH PRN (13:32)
[2023-07-27] MEDS ORDERED: dexAMETHasone 8 MG in SYRINGE 0 ML IV PRN (13:32)
[2023-07-27] MEDS ORDERED: MAGNESIUM HYDROXIDE SUSP 30 ML UDC PO PRN (13:32)
[2023-07-27] MEDS ORDERED: oxyCODONE/ACETAMINOPHEN 5mg/325mg TAB PO PRN (13:32)
[2023-07-27] MEDS ORDERED: FAMOTIDINE 20 MG TAB PO PRN (13:32)
[2023-07-27] MEDS ORDERED: ONDANSETRON 4 MG OD TAB PO PRN (13:32)
[2023-07-27] MEDS ORDERED: bisacodyL 10 MG SUPP PR PRN (13:32)
[2023-07-27] MEDS ORDERED: HYDROmorphone INJ 0.5 MG/0.5 ML SYR IV PRN (13:32)
[2023-07-27] MEDS ORDERED: SOD PHOSPHATE/SOD BIPHOSPHATE ENEMA 132 ML BTL PR PRN (13:32)
[2023-07-27] MEDS ORDERED: ALUMINUM/MAGNESIUM SUSP 30 ML UDC PO PRN (13:32)
[2023-07-27] MEDS ORDERED: METOCLOPRAMIDE HCL INJ 5 MG/ML 2 ML VIAL IV PRN (13:32)
[2023-07-27] MEDS ORDERED: PROMETHAZINE HCL 12.5 MG in SODIUM CHLORIDE 0.9% 50 ML IV PRN (13:32)
[2023-07-27] MEDS ORDERED: NALOXONE HCL 0.4 MG/1 ML VIAL/CARP IV PRN (13:32)
[2023-07-27] MEDS ORDERED: DO NOT ADMINISTER PNEUMOCOCCAL VACCINE PRN (13:32)
[2023-07-27] MEDS ORDERED: ACETAMINOPHEN 1,000 MG/100 ML VIAL IV PRN (13:32)
[2023-07-27] MEDS ORDERED: hydrOXYzine HCl 25 MG TAB PO PRN (13:32)
[2023-07-27] MEDS ORDERED: LORazepam 0.5 MG TAB PO PRN ×2 (13:32→15:23)
[2023-07-27] MEDS ORDERED: diphenhydrAMINE Capsule 25 MG CAP PO PRN (13:32)
[2023-07-27] MEDS ORDERED: DO NOT ADMINISTER FLU VACCINE PRN (13:32)
--- NOTE | 2023-07-27 13:32 | Post Operative Brief Note ---
PG Immediate Post Op with CF Date of Surgery July 27, 2023 Pre & Post Diagnosis Operation Date: 07/27/23 10:00 Pre-Op Diagnosis: C4-C5: Cervical Radiculopathy, Myelomalacia of Cervical Cord, Spinal Stenosis Post-Op Diagnosis: C4-C5: Cervical Radiculopathy, Myelomalacia of Cervical Cord, Spinal Stenosis I identified the patient and participated in the time-out.: Yes Procedure Operation Date: 07/27/23 10:00 Actual Procedures p C4-C5 Anterior Cervical Discectomy with Fusion, Anterior Instrumentation and Insertion of Interbody Device(Not Applicable) - Errol Ferrell MD Surgeon Errol Ferrell MD Home Staging Specialist none Estimated Blood Loss 5 Findings Consistent with Post-Op Diagnosis Specimens Specimen Description: none per surgeon Drains Bennett Catheter (A 16 Armenian, 5 cc bennett catheter was inserted by Rola Galindo RN without difficulty, clear yellow urine obtained, output to be monitored by A nesthesia.)
--- NOTE | 2023-07-27 13:43 | Fluoroscopy Report ---
FL cervical 2-3V CLINICAL HISTORY: C4-C5 ACDF COMPARISON STUDY: MRI of the cervical spine October 09, 2022. FLUOROSCOPY TIME: 1 minute and 16 seconds. Ka, r: 9.86 mGy FLUOROSCOPIC IMAGES: 4 FINDINGS: Fluoroscopy was provided during C4-C5 anterior discectomy and fusion. Hardware is intact. T here are no unexpected radiopaque foreign bodies. Endotracheal tube is partially imaged. IMPRESSION: Fluoroscopy provided during C4-5 anterior discectomy and fusion. ACT 112: Negative or not required by law. Electronically signed by: Riley Chaparro M.D. 07/27/2023 1:42 PM
--- NOTE | 2023-07-27 14:39 | Anesthesiology Progress Note ---
Date of Service July 27, 2023 Anesthesia Post Procedure Vital Signs Vital Signs: Temp Pulse Resp BP Pulse Ox O2 Del Method O2 Flow Rate 07/27/23 14:30 79 19 150/59 H 93 Room Air 0 07/27/23 14:20 74 12 143/58 H 96 Nasal Cannula 2 07/27/23 14:10 73 16 147/57 H 92 Room Air 0 07/27/23 14:00 75 14 150/60 H 93 Room Air 0 07/27/23 13:50 73 14 152/59 H 97 Oxymask 4 07/27/23 13:40 73 13 147/57 H 97 Oxymask 8 07/27/23 13:30 67 12 134/53 L 99 Oxymask 12 07/27/23 13:24 36.1 C L 69 17 124/55 L 96 Oxymask 12 07/27/23 09:29 36.9 C 60 18 157/54 H 96 Room Air Transfer of Care Handoff Completed per policy Notes Mental Status: alert / awake / arousable and participated in evaluation Patient Amnestic to Procedure: Yes Nausea / Vomiting: adequately controlled Pain: adequately controlled Airway Patency, RR, SpO2: stable & adequate BP & HR: stable & adequate Hydration State: stable & adequate Anesthetic Complications: no major complications apparent and Pt Satisfied with anesthetic care
[2023-07-27] MEDS ORDERED: BLOOD SUGAR DIAGNOSTIC SCH (15:23)
[2023-07-27] MEDS ORDERED: DOCUSATE SODIUM 100 MG CAP PO PRN (15:23)
[2023-07-27] MEDS ORDERED: NON-FORMULARY MEDICATION (Evolocumab [Repatha Sureclick] 140 mg/mL pen injector) SQ SCH (15:23)
[2023-07-27] MEDS ORDERED: BLOOD GLUCOSE METER SCH (16:00)
[2023-07-27] MEDS: LACTATED RINGER'S 1,000 ML IV SCH (16:03)
--- NOTE | 2023-07-27 16:51 | Operative Report ---
PG Post Operative Report Pre & Post Diagnosis Operation Date: 07/27/23 10:00 Pre-Op Diagnosis: C4-C5: Cervical Radiculopathy, Myelomalacia of Cervical Cord, Spinal Stenosis Post-Op Diagnosis: C4-C5: Cervical Radiculopathy, Myelomalacia of Cervical Cord, Spinal Stenosis I identified the patient and participated in the time-out.: Yes Procedure Operation Date: 07/27/23 10:00 Actual Procedures p C4-C5 Anterior Cervical Discectomy with Fusion, Anterior Instrumentation and Insertion of Interbody Device(Not Applicable) - Errol Ferrell MD Surgeon Errol Ferrell MD Advanced Practice Professional none Estimated Blood Loss 5 Findings Consistent with Post-Op Diagnosis Specimens None Description of Procedure 1. C4-5 anterior cervical discectomy and fusion (40827) 2. C4-5 anterior cage with screw fixation, NuVasive interlock II 7 x 17 x 14 mm 10 degree lordosis (64391) 3. Demineralized bone matrix (99297) Patient was taken the operating room and after adequate anesthesia was carefully positioned supine on the OSI flat top table. Preprepped was performed followed by then securing the patient in routine fashion for an anterior cervical appro ach. After marking for the incision using fluoroscopy, prep and drape was performed. I began the procedure with a transverse incision on the left side of the cervical spine anteriorly, from here then dissected down carefully to the anterior aspect of the cervical spine. I confirmed our location using fluoroscopy at the C4-5 level. Tissues were then mobilized, and I used fluoroscopy to insert distracting pins at C4 and C5. Retractors were then set, I moved ahead with bring in the operative microscope. Tissue was then mobilized away from the disc space, I then incised the anterior annulus and then remove the disc from the C4-5 level including cartilage from the endplates. This process continued to I reached the posterior aspect of the disc space, and from here I then used a high-speed bur to thin and remove the overhanging spondylosis. Curettes were then utilized to mobilize the posterior annulus and longitudinal ligament, and then using a Kerrison punch I remove this posterior s tructures across the interspace decompressing the interspace. With the decompression completed, I then went through a trial spacer selecting the size as stated, this device was obtained, demineralized bone matrix was placed within. Fixation was then provided using 15 mm screws from the set, 2 cephalad and 1 inferiorly with excellent purchase. Final inspection revealed no issues, vancomycin powder was placed, I then closed the operative site with using 3-0 Vicryl sutures in interrupted fashion 2 layers. Benzoin and Steri-Strips were applied along with a sterile dressing, the patient tolerated procedure well was taken to recovery room satisfactory condition. I attest to the content of the Intraoperative Record and any orders documented therein. Any exceptions are noted below.
[2023-07-27] MEDS: ceFAZolin 1000MG 1,000 MG/7.5 ML SYR IV SCH (18:26)
[2023-07-27] MEDS ORDERED: DEXTROSE 50% 50 ML SYRINGE IV PRN (18:33)
[2023-07-27] MEDS ORDERED: CARBOHYDRATES FOR HYPOGLYCEMIA PO PRN (18:33)
[2023-07-27] MEDS ORDERED: GLUCOSE 10 TAB/TUBE PO PRN (18:33)
[2023-07-27] MEDS ORDERED: GLUCOSE 40% GEL 15 GM TUBE PO PRN (18:33)
[2023-07-27] MEDS ORDERED: GLUCAGON FOR INJ 1 MG VIAL SQ PRN (18:33)
[2023-07-27] MEDS: COUGH DROP (SUGAR FREE) LOZ 24 LOZ/1 BOX BUCCAL ONE (18:36)
--- NOTE | 2023-07-27 18:40 | Consultation ---
Date of Consultation July 27, 2023 Assessment & Plan (1) Diabetes mellitus, type 2: ADA diet. Basal insulin therapy. Sliding scale coverage if needed (2) Stage 3b chronic kidney disease: Monitor intake and output. Serial labs (3) Hyperlipidemia: Repatha every 2 weeks IM as an outpatient (4) Primary hypothyroidism: Continue current thyroid replacement (5) Cervical stenosis of spinal canal: She will underwent C4-C5 anterior cervical discectomy with fusion and instrumentation today, July 26, by Dr. Ferrell Plan Eventual discharge to home by primary service History of Present Illness Reason for Consultation: Medical manage Attending Physician: Errol Ferrell MD History of Present Illness 78-year-old white female who underwent elective C4-C5 anterior cervical discectomy with fusion and instrumentation today, July 26. She was seen postoperatively and is alert and oriented without distress. Family members are in attendance. Allergies Allergy/AdvReac Type Severity Reaction Status Date / Time cetirizine Allergy Intermediate Rash, itch Verified 07/27/23 09:15 fexofenadine Allergy Intermediate Rash, itch Verified 07/27/23 09:15 (Bertha, Zyrtec) loratadine Allergy Intermediate Rash Verified 07/27/23 09:15 Penicillins Allergy Intermediate Rash Verified 07/27/23 09:15 glimepiride AdvReac Intermediate High blood Verified 07/27/23 09:15 sugars pioglitazone AdvReac Intermediate Palpitation Verified 07/27/23 09:15 s simvastatin AdvReac Intermediate Myalgia Verified 07/27/23 09:15 doxycycline AdvReac Mild Gastrointestinal Verified 07/27/23 09:15 Upset gabapentin AdvReac Mild Anxiety Verified 07/27/23 09:15 lisinopril AdvReac Mild Dehydration Verified 07/27/23 09:15 Home Medications Medication Instructions Recorded Confirmed Type aspirin 81 mg tablet,delayed 81 mg PO QAM 07/22/18 07/27/23 History release cyanocobalamin (vitamin B-12) 1,000 mcg PO QAM 07/22/18 07/27/23 History 1,000 mcg tablet (Vitamin B-12) blood sugar diagnostic (AbzenaTouch #10 ea 09/29/18 07/06/23 Rx Ultra Blue Test Strip) lancets 33 gauge (OneTouch Delica #100 ea 09/29/18 07/06/23 Rx Lancets) simethicone 180 mg capsule (Gas-X 180 mg PO DAILY PRN abdominal 09/29/18 07/27/23 Rx Ultra-Strength) distention #30 caps acetaminophen 325 mg capsule 325 mg PO QID PRN Pain 11/20/20 07/27/23 History ascorbic acid (vitamin C) 100 mg 100 mg PO QAM 11/20/20 07/27/23 History tablet docusate sodium 100 mg capsule 100 mg PO DAILY PRN Constipation 11/20/20 07/27/23 History (Colace) lidocaine 4 % topical patch 1 patch topical DAILY PRN Pain 11/20/20 07/27/23 History (Aspercreme (lidocaine)) blood-glucose meter (OneTouch #1 ea 04/12/21 07/06/23 Rx Ultra2 Meter) Saccharomyces boulardii 250 mg 10,000 mmu cells PO QAM 12/11/21 07/27/23 History capsule (Daily Probiotic (S. boulardii)) fish,bora,flax oils-om3,6,9no1 2 gummy PO DAILY 01/08/22 07/27/23 History [[place] 3-6-9 Complex] prednisolone acetate 1 % eye 1 drp ophthalmic (eye) QAM 01/08/22 07/27/23 History drops,suspension sertraline 50 mg tablet 25 mg PO BID 12/05/22 07/27/23 History donepezil 5 mg tablet (Aricept) 5 mg PO QAM 04/28/23 07/27/23 History ipratropium bromide 21 mcg (0.03 2 spray intranasal BID #90 mL 05/29/23 07/27/23 Rx %) nasal spray Hair Thickening Supplement - 1 cap PO DAILY 06/10/23 07/27/23 History POW Brand dapagliflozin propanediol 5 mg 5 mg PO QAM 06/12/23 07/27/23 History tablet (Farxiga) lorazepam 0.5 mg tablet 0.5 mg PO DAILY PRN anxiety #30 06/23/23 07/27/23 Rx tabs pregabalin 100 mg capsule 100 mg PO BID 06/24/23 07/27/23 History cholecalciferol (vitamin D3) 50 4,000 units PO QAM 07/03/23 07/27/23 History mcg (2,000 unit) capsule (Vitamin D3) evolocumab 140 mg/mL subcutaneous 140 mg subcut Q14D 07/03/23 07/27/23 History pen injector (joannacarly Blake) fenofibrate nanocrystallized 145 145 mg PO QAM 07/03/23 07/27/23 History mg tablet ferrous sulfate 325 mg (65 mg 325 mg PO QAM 07/03/23 07/27/23 History iron) tablet insulin glargine 100 unit/mL (3 55 unit subcut HS 07/03/23 07/27/23 History mL) subcutaneous pen (Basaglar KwikPen U-100 Insulin) levothyroxine 50 mcg tablet 50 mcg PO QAM 07/03/23 07/27/23 History losartan 100 mg tablet 100 mg PO QAM 07/03/23 07/27/23 History thiamine HCl (vitamin B1) 25 mg 25 mg PO QAM 07/03/23 07/27/23 History tablet celecoxib 100 mg capsule (Celebrex) 100 mg PO BID #60 caps 07/06/23 07/27/23 Rx pantoprazole 40 mg tablet,delayed mg PO 07/06/23 07/06/23 History release Patient History Medical History (Updated 07/27/23 @ 18:38 by Epifanio Tamez MD) Vertigo chronic with positional changes since shunt placement-denies change or worsening History of anesthesia reaction several days of post-op confusion Lumbago Lumbar post-laminectomy syndrome Constipation chronic Stage 3b chronic kidney disease Chronic anemia Kidney stones last kidney stone june 2023 History of COVID-19 03/2022- resolved History of hydrocephalus Approximately 2019 Normal pressure hydrocephalus s/p TIGHTENER shunt 2020 Presence of cerebrospinal fluid drainage device Placed 2019 ([facility]) Follows w/[facility] neuro and Dr. Dover Sensorineural hearing loss (SNHL) of both ears Hypothyroid NPH (normal pressure hydrocephalus) s/p TIGHTENER shunt placed in 2020 GERD (gastroesophageal reflux disease) controlled, stable per pt Mild cognitive impairment Lacunar infarction 2015, no residual effects currently Essential hypertension variable per pt Diabetic peripheral neuropathy hands and feet, ambulates with cane Polymyalgia rheumatica Osteoarthritis Fibromyalgia Diabetes mellitus, type 2 IDDM Temporomandibular joint disorder clicking, only locked once after procedure-but was easily resolved. Depression Hyperlipidemia Fluid retention hands, ongoing since 2019 to chart review and pt-denies recent change or worsening Sleep apnea no device; had sx and 35lb weight loss at the time Surgical History (Updated 07/27/23 @ 09:12 by Alexsandra Maciel RN) H/O lithotripsy History of fusion of lumbar spine Hx of cystoscopy w/ stent 03/23/23 [facility]; s/p removal stent History of esophagogastroduodenoscopy (EGD) H/O oophorectomy H/O: hysterectomy History of arthroscopy R/L knee History of repair of rotator cuff Right History of total hip arthroplasty Left History of total knee replacement R/L Fusion of spine Lumbar (x2 surgeries) History of colonoscopy History of tooth extraction History of endoscopic sinus surgery History of nasal septoplasty History of cataract surgery R/L History of tonsillectomy H/O eye surgery Partial left retina replacement Family History Sister Breast cancer Family hx colonic polyps Hypertension Skin cancer Metastatic malignant neoplasm to breast Father Myocardial infarction Heart disease Sister Family hx colonic polyps Mother Skin cancer Lung cancer smoker Brother Lung cancer smoker Bladder cancer Heart disease Family/Other Adverse effect of anesthesia Other No family history of adverse response to anesthesia No family history of bleeding disorder Denies family history of Ovarian cancer Prostate cancer Colorectal cancer Social History Smoking Status: Former smoker Tobacco Type: Cigarettes Age Started Using Tobacco: 23; Age Quit Using Tobacco: 31; packs per day: 1; Smoking End Date: 25 years ago-1 ppd smoker; Second Hand Exposure: Yes (hx growing up and used to smoke); Do You Dip or Chew Tobacco: No; Tobacco Cessation Education Requested by Patient: No Hx Alcohol Use: Yes Alcohol type: beer, wine and hard liquor Alcohol Intake Frequency: 2-4 x/Month Hx Substance Use: No Preferred Language: Greek Communication Ability: Effective Visual Impairment: Limited Hearing Ability: Normal Ground Products Director Required: No Beliefs That Will Affect Care: None marital status: Current Living Situation: Spouse current occupational status: retired current occupation: used to work running payrolls How many Children do You have: 1 Other Information That Helps Us Care for You: No Feels Safe at Home: Yes Safety Concerns: Feels Safe At This Time Childhood Exposure to Second-Hand Smoke: Yes Diet: regular caffeine: Yes during the past year weight has: remained stable Dental Care, Regularly: Yes Physical Activity Frequency: Does not Exercise Seatbelt Use: always Sunscreen Use: Yes (sometimes ) Do you think of yourself as: straight/heterosexual Gender Identity: Female Assistive Devices: Cane, Glasses, Hearing Aid - Bilateral and Walker Assistive Devices Comment: will leave hearing aids home DOS Review of Systems Review of Systems: Constitutional-no fever or chills ENT-no blurred vision, no double vision, no epistaxis, no sore throat Respiratory-no cough, no wheezing, no shortness of breath Cardiac-no palpitations, no chest pain, no syncope GI-no nausea, vomiting, diarrhea, melena, hematochezia -no urinary retention, no urinary incontinence, no dysuria, no hematuria Musculoskeletal-no joint pain, no muscle tenderness Skin-no bruising, no rashes, no pruritus Neuro-no isolated weakness, no paresthesia, no weakness Psych-no depression, no anxiety Physical Exam Physical Exam: General-alert and oriented x3, no fever, no chills HEENT-head atraumatic and normocephalic, pupils equal and reactive to light, extraocular muscles intact Neck-no lymphadenopathy or thyromegaly, trachea midline. Surgical site left anterior neck is clean and dry with hemostasis achieved Chest-clear to auscultation. No rales, wheezing or rhonchi Cardiac-regular rate and rhythm, normal S1 and S2 Abdomen-normal bowel sounds, nontender, no hepatosplenomegaly Extremities-no cyanosis, clubbing, or edema Neuro-cranial nerves II through XII intact, motor and sensory function within normal limits, strength symmetrical, no focal deficits Psych-normal affect, normal mood Results & Data Vital Signs (Past 12 Hours) Vital Signs Temp Pulse Pulse Resp BP Pulse Ox Pulse Ox 07/27/23 17:58 83 18 145/53 H 96 07/27/23 17:00 87 18 123/66 96 07/27/23 16:00 71 18 97 07/27/23 15:59 36.4 C L 80 16 133/66 94 07/27/23 15:41 36.6 C 75 18 143/68 H 96 07/27/23 15:30 36.2 C L 80 16 134/69 93 07/27/23 15:00 07/27/23 15:00 96 07/27/23 14:50 77 12 138/58 L 96 07/27/23 14:40 37.0 C 75 17 147/57 H 94 07/27/23 14:30 79 19 150/59 H 93 07/27/23 14:20 74 12 143/58 H 96 07/27/23 14:10 73 16 147/57 H 92 07/27/23 14:00 75 14 150/60 H 93 07/27/23 13:50 73 14 152/59 H 97 07/27/23 13:40 73 13 147/57 H 97 07/27/23 13:30 67 12 134/53 L 99 07/27/23 13:24 36.1 C L 69 17 124/55 L 96 07/27/23 09:29 36.9 C 60 18 157/54 H 96 O2 Del Method O2 Del Method O2 Flow Rate O2 Flow Rate 07/27/23 17:58 Nasal Cannula 2 07/27/23 17:00 Nasal Cannula 2 07/27/23 16:00 Nasal Cannula 2 07/27/23 15:59 Nasal Cannula 2 07/27/23 15:41 Nasal Cannula 2 07/27/23 15:30 Nasal Cannula 2 07/27/23 15:00 Nasal Cannula 2 07/27/23 15:00 Nasal Cannula 2 07/27/23 14:50 Nasal Cannula 2 07/27/23 14:40 Nasal Cannula 2 07/27/23 14:30 Room Air 0 07/27/23 14:20 Nasal Cannula 2 07/27/23 14:10 Room Air 0 07/27/23 14:00 Room Air 0 07/27/23 13:50 Oxymask 4 07/27/23 13:40 Oxymask 8 07/27/23 13:30 Oxymask 12 07/27/23 13:24 Oxymask 12 07/27/23 09:29 Room Air PG Care Time/CCT Total # of Minutes Spent Total Time Spent with Patient: Total time spent is greater than 50% in coordination of care (as documented) at patient's floor/unit and/or counseling patient: Coding Level of Care Code 16313 INT INP/OBS CARE 3/75MIN Diagnoses Diabetes mellitus, type 2 E11.9 Stage 3b chronic kidney disease N18.32 Hyperlipidemia E78.5 Primary hypothyroidism E03.9 Cervical stenosis of spinal canal M48.02
[2023-07-27] MEDS: INSULIN ASPART PER UNIT CHARGE SC SCH (20:22)
[2023-07-27] MEDS: SERTRALINE HCL 50 MG TABLET PO SCH (20:24)
[2023-07-27] MEDS: IPRATROPIUM BROMIDE NASAL SPRAY 0.06% 15ML NAE SCH (20:24)
[2023-07-27] MEDS: PREGABALIN 100 MG CAP PO SCH (20:25)
[2023-07-27] MEDS: DOCUSATE SODIUM/SENNA 50/8.6MG TAB PO SCH (20:26)
[2023-07-27] MEDS: LANTUS PER UNIT CHARGE SQ SCH (20:26)
[2023-07-28] MEDS: ACETAMINOPHEN 500 MG TAB PO PRN (02:36)
[2023-07-28] MEDS: POLYETHYLENE (MIRALAX) 17 GM PACK PO SCH (06:20)
[2023-07-28] MEDS: LEVOTHYROXINE SODIUM 50 MCG TABLET PO SCH (06:20)
[2023-07-28 06:56] LABS: Basophils # (auto) 0.02 K/uL (0.00-0.20); Basophils % (auto) 0.2 %; Eosinophils # (auto) 0.01 K/uL (0.00-0.50); Eosinophils % (auto) 0.1 %; Hematocrit (blood only) 37.6 % (37.0-47.0); Hemoglobin 12.5 g/dl (12.0-16.0); Immature Granulocytes # (auto) 0.06 K/uL (0.01-0.20); Immature Granulocytes % (auto) 0.6 %; Lymphocytes # (auto) 1.48 K/uL (1.20-3.40); Lymphocytes % (auto) 15.6 %; Mean Corpuscular Hemoglobin 30.4 pg (25.0-34.0); Mean Corpuscular Hgb Conc 33.2 g/dL (32.0-36.0); Mean Corpuscular Volume 91.5 fL (80.0-100.0); Mean Platelet Volume 11.4 fL (9.4-12.4); Monocytes # (auto) 1.16 K/uL (0.11-0.59); Monocytes % (auto) 12.2 %; Neutrophils # (auto) 6.76 K/uL (1.40-6.50); Neutrophils % (auto) 71.3 %; Platelet Count 192 K/uL (130-400); RDW Coefficient of Variation 14.1 % (11.5-14.5); RDW Standard Deviation 47.7 fL (36.4-46.3); Red Blood Count 4.11 M/uL (4.20-5.40); White Blood Count 9.49 K/ul (4.8-10.8)
[2023-07-28 07:45] LABS: Calcium 8.7 mg/dl (8.6-10.3); Creatinine Clr Calc Pharmacy 27.4 ml/min; Est GFR (African American) 31.1 ml/min; Est GFR (Non-African American) 26.9 ml/min; Potassium 4.1 mmol/L (3.5-5.1)
[2023-07-28] MEDS: prednisoLONE acetate 1% OP SUSP 5 ML BTL OP SCH (08:07)
[2023-07-28] MEDS: DONEPEZIL HCL 5 MG TAB PO SCH (08:12)
[2023-07-28] MEDS: FENOFIBRATE NANOCRYSTALLIZED 145 MG TABLET PO SCH (08:12)
--- NOTE | 2023-07-28 11:55 | Orthopedic Progress Note ---
Date of Service July 28, 2023 Assessment & Plan (1) Status post cervical spinal fusion: Overall, patient is doing quite well today with good pain control of her neck and upper extremities. She worked well with physical therapy working on range of motion exercises. She can be discharged later this morning pending formal physical therapy evaluation and recommendations. At this point, she would not like any pain analgesic prescription sent and said she will use Tylenol for pain control upon discharge. She will follow-up with Dr. Ferrell in 2 weeks for postoperative management. Subjective . Nathalie was seen and evaluated this morning resting comfortably in no apparent distress. She notes that her pain is well-controlled to the neck. She notes that her symptoms basically resolved down her left arm. She has worked with physical therapy working on range of motion exercises. She denies any other concerns today. Review of Systems All systems reviewed & are unremarkable except as noted in HPI & below. Physical Exam . On physical examination of the neck and upper extremity, dressings are clean, dry, intact. Grossly intact motor and sensory function to the bilateral upper extremities. +2 radial pulse. Less than 2-second capillary refill. Normal sensation. Neurovascular intact. Results & Data Results & Data Laboratory Results . Diagnostic Findings . PG Care Time/CCT Total # of Minutes Spent Total Time Spent with Patient: Total time spent is greater than 50% in coordination of care (as documented) at patient's floor/unit and/or counseling patient: Coding Level of Care Code 91635 Post Operative Follow-Up Diagnoses Status post cervical spinal fusion Z98.1
--- NOTE | 2023-07-28 11:57 | Discharge Summary ---
Date of Service July 28, 2023 Principal Diagnosis Same as "Discharge Diagnosis" noted below under Discharge Instructions. Discharge Exam . On physical examination of the neck and upper extremity, dressings are clean, dry, intact. Grossly intact motor and sensory function to the bilateral upper extremities. +2 radial pulse. Less than 2-second capillary refill. Normal sensation. Neurovascular intact. Discharge Data Consultations 07/27/23 13:38 Consult Hospitalist Routine Procedures Performed Operation Date: 07/27/23 10:00 Actual Procedures p C4-C5 Anterior Cervical Discectomy with Fusion, Anterior Instrumentation and Insertion of Interbody Device(Not Applicable) - Errol Ferrell MD Ordered Studies 07/27/23 07:00 FL cervical 2-3V Routine Hospital Course (1) Status post cervical spinal fusion: On July 27, 2023 Nathalie arrived at [facility] and underwent a C4-C5 anterior cervical discectomy with fusion, anterior instrumentation and insertion of interbody device performed by Dr. Ferrell without complications. She had a general anesthetic. Postoperatively, she was transferred to the PACU for immediate postoperative management and then transferred to the general orthopedic floor in stable condition. Her hospital course was uneventful. On postoperative day #1, her vital signs were stable and her pain was well- controlled. She participated well with physical therapy working on range of motion exercises. She was then discharged home in stable condition. She will follow-up with Dr. Ferrell in 2 weeks for postoperative management. PG Care Time/CCT Total # of Minutes Spent Total Time Spent with Patient: Total time spent is greater than 50% in coordination of care (as documented) at patient's floor/unit and/or counseling patient: Discharge Plan Discharge Items Patient Disposition: Home - Self-Care Reason For Visit: Spinal Stenosis Cervical Region Radiculopathy, Mye Discharge Diagnosis: Same Activity: Per Instructions section Non-emergency contact: Surgeon Call non-emergency contact if: your temperature is above 101.5, your wound has increased redness and your wound has increased drainage Follow-up/Referrals: Benita Bergeron CRNP [Primary Care Provider] - Diet: Regular Addtl Attending Provider Instructions: Please follow Dr. Ferrell Post Operative Instructions that were given in the office upon scheduling surgery. -Dressings will be changed prior to discharge. -Keep Surgical site dry for the next 3 days. -May shower after 3 days with no soaking of the surgical site -May leave surgical site open to air if dry. -Cover the surgical site with a bandage if draining or getting caught on c lothes. -Take it easy for the next 2 weeks. (Ex: No Lifting, running, bending, or twisting, etc.). -You will F/u with Dr. Ferrell in 2 weeks for postoperative care. -If any questions or concerns in the mean time, Reach out to [facility] Orthopedics at [phone] Pending Studies at Discharge: No Stand-Alone Forms: [facility], Sm[facility] Cessation Medications and DC Order Prescriptions: Continued pregabalin 100 mg capsule 100 mg PO BID pantoprazole 40 mg tablet,delayed release (DR/EC) PO celecoxib [Celebrex] 100 mg capsule 100 mg PO BID Qty: 60 2RF (DME) blood-glucose meter [OneTouch Ultra2 Meter] [facility] See Rx Instructions .Route Qty: 1 0RF Rx Instructions: TEST BID; DX CODE- E11.9 ipratropium bromide 21 mcg (0.03 %) spray,non-aerosol 2 spray intranasal BID Qty: 90 2RF Rx Instructions: administer into each nostril lorazepam 0.5 mg tablet 0.5 mg PO DAILY PRN (Reason: anxiety) Qty: 30 0RF simethicone [Gas-X Ultra-Strength] 180 mg capsule 180 mg PO DAILY PRN (Reason: abdominal distention) Qty: 30 0RF (DME) lancets [OneTouch Delica Lancets] [facility] See Dose Instructions .ROUTE .MEDSUPPLY Qty: 100 0RF Dose Instruction: As directed Rx Instructions: TEST ONCE A DAY (DME) OneTouch Ultra Blue Test Strip strip See Dose Instructions .ROUTE .MEDSUPPLY Qty: 10 0RF Dose Instruction: As directed Rx Instructions: MONITOR GLUCOSE ONCE DAILY Saccharomyces boulardii [Daily Probiotic (S. boulardii)] 250 mg capsule 10,000 mmu cells PO QAM sertraline 50 mg tablet 25 mg PO BID Rx Instructions: takes 1/2 in Am, 1/2 at night. took 1/2 morning of surgery prednisolone acetate 1 % drops,suspension 1 drp ophthalmic (eye) QAM fish,bora,flax oils-om3,6,9no1 [[place] 3-6-9 Complex] 2 gummy PO DAILY docusate sodium [Colace] 100 mg capsule 100 mg PO DAILY PRN (Reason: Constipation) acetaminophen 325 mg capsule 325 mg PO QID PRN (Reason: Pain) lidocaine [Aspercreme (lidocaine)] 4 % adhesive patch,medicated 1 patch topical DAILY PRN (Reason: Pain) ascorbic acid (vitamin C) 100 mg tablet 100 mg PO QAM Hair Thickening Supplement - LogRhythm Brand capsule 1 cap PO DAILY dapagliflozin propanediol [Farxiga] 5 mg tablet 5 mg PO QAM cyanocobalamin (vitamin B-12) [Vitamin B-12] 1,000 mcg Tablet 1,000 mcg PO QAM aspirin 81 mg tablet,delayed release (DR/EC) 81 mg PO QAM donepezil [Aricept] 5 mg tablet 5 mg PO QAM thiamine HCl (vitamin B1) 25 mg Tablet 25 mg PO QAM Patient Comments: easy melts levothyroxine 50 mcg tablet 50 mcg PO QAM Rx Instructions: TAKE 1 TABLET BY MOUTH EVERY DAY ferrous sulfate 325 mg (65 mg iron) tablet 325 mg PO QAM losartan 100 mg tablet 100 mg PO QAM fenofibrate nanocrystallized 145 mg tablet 145 mg PO QAM insulin glargine [Basaglar KwikPen U-100 Insulin] 100 unit/mL (3 mL) insulin pen 55 unit SQ HS cholecalciferol (vitamin D3) [Vitamin D3] 2,000 unit capsule 4,000 units PO QAM Patient Comments: pt takes in the am Repatha SureClick 140 mg/mL pen injector 140 mg subcut Q14D Discharge Orders: Discharge Order (Routine); Ordered 07/28/23 Ordered By: Gianni Ramsay Admission Data Admit Date/Time: 07/27/23 13:32 Attending Provider: Errol Ferrell Admit Provider: Errol Ferrell Primary Care Provider: Benita Bergeron Other Providers: Epifanio Tamez Other Interventions: Discharge Summary Assessment (RN) Last Done: 07/28/23 09:42
== END 2023-07-28 10:23 | disposition home or self-care (01) ==
LOC: 3E 08:30 → ASU 08:30